=== PATIENT | female | born 1980 | race Hispanic/Latino ===

== ENCOUNTER 2017-10-01 20:54 | Emergency (ER) | payer OTHER ==
[2017-10-01 22:14] LABS: Urine Blood NEGATIVE (NEG); Urine Glucose NEGATIVE (NEG); Urine Protein NEGATIVE (NEG); Urine Specific Gravity 1.015 (1.005-1.030)
[2017-10-01] MEDS ORDERED: NA CHLORIDE 0.9% 1,000 ML ONE (22:52)
[2017-10-01] MEDS ORDERED: ONDANSETRON 4 MG/2 ML VIAL ONE (22:52)
[2017-10-01] MEDS ORDERED: KETOROLAC 30 MG/ML INJ ONE (22:52)
[2017-10-01 23:51] LABS: Absolute Monocytes 0.8 K/uL (0.1-1.3); Absolute Neutrophil 6.9 K/uL (1.8-8.0); Eosinophils % 0.5 % (0-4.4); Hematocrit 40.7 % (36.0-45.0); Lymphocytes % 33.6 % (15.3-44.8); MCH 30.2 pg (27.0-35.0); MCV 90.8 fL (80-100); MPV 9.3 fL (7.6-11.3); Monocytes % 7.1 % (3.3-12.3); RBC Red Blood Cell Count 4.49 M/uL (3.86-4.86)
[2017-10-01 23:54] LABS: Bicarbonate 29 mEq/L (21-31); Glucose Level 88 mg/dL (65-120); Potassium 4.1 mEq/L (3.6-5.0); Sodium Level 139 mEq/L (135-145)
[2017-10-01 23:57] LABS: ALT/SGPT 15 IU/L (10-60); AST/SGOT 17 IU/L (10-42); Albumin 4.2 g/dL (3.2-5.5); Alkaline Phosphatase 69 IU/L (42-121); BUN Blood Urea Nitrogen 11 mg/dL (6-20); Bilirubin Total 0.4 mg/dL (0.3-1.2); Protein, Total 7.4 g/dL (6.0-8.3)
--- NOTE | 2017-10-02 01:05 | EDPHYS ---
Physician Documentation [facility] Name: Gilma Urbano Age: 36 yrs Sex: Female : 1980 Arrival Date: 10/01/2017 Time: 20:57 Bed 23 Private MD: Benny Zheng ED Physician Donovan Lowery HPI: 10/02 00:53 This 36 yrs old Female presents to ER via Ambulatory with complaints of Kidney ps1 Pain. 00:53 The patient complains of pain in the left low back. left groin. Onset: The ps1 symptoms/episode began/occurred today. hx of stones. Used to see Dr. Russell. hx of lithotripsies in past. Patient states symptoms c/w previous stones. No fever. Has had nausea 2/2 pain. Pain rated as moderate and fluctuating. Described as dull. . 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 - Social history:: Smoking status: Patient/guardian denies using tobacco. - Ebola Screening: : Patient negative for fever greater than or equal to 101.5 degrees Fahrenheit, and additional compatible Ebola Virus Disease symptoms Patient denies exposure to infectious person Patient denies travel to an Ebola-affected area in the 21 days before illness onset No symptoms or risks identified at this time. ROS: 10/02 00:53 Constitutional: Negative for fever, chills, and weight loss, Eyes: Negative for injury, ps1 pain, redness, and discharge, Cardiovascular: Negative for chest pain, palpitations, and edema, Respiratory: Negative for shortness of breath, cough, wheezing, and pleuritic chest pain, Abdomen/GI: Negative for abdominal pain, nausea, vomiting, diarrhea, and constipation, Back: Negative for injury and pain. : Positive for flank pain, urinary frequency. 00:53 MS/Extremity: Negative for injury and deformity, Skin: Negative for injury, rash, and ps1 discoloration, Neuro: Negative for headache, weakness, numbness, tingling, and seizure, Psych: Negative for depression, anxiety, suicide ideation, homicidal ideation, and hallucinations. Exam: 00:53 Constitutional: This is a well developed, well nourished patient who is awake, alert, ps1 and in no acute distress. Head/Face: Normocephalic, atraumatic. Eyes: Pupils equal round and reactive to light, extra-ocular motions intact. Lids and lashes normal. Conjunctiva and sclera are non-icteric and not injected. Chest/axilla: Normal chest wall appearance and motion. Nontender with no deformity. No lesions are appreciated. Cardiovascular: Regular rate and rhythm. No gallops, murmurs, or rubs. Normal PMI, no JVD. No pulse deficits. Respiratory: Lungs have equal breath sounds bilaterally, clear to auscultation and percussion. No rales, rhonchi or wheezes noted. No increased work of breathing, no retractions or nasal flaring. Abdomen/GI: Soft, non-tender, with normal bowel sounds. No distension or tympany. No guarding or rebound. No evidence of tenderness throughout. Skin: Warm, dry with normal turgor. Normal color with no rashes, no lesions, and no evidence of cellulitis. MS/ Extremity: Pulses equal, no cyanosis. Neurovascular intact. Full, normal range of motion. Neuro: Awake and alert, GCS 15, oriented to person, place, time, and situation. Cranial nerves II-XII grossly intact. Sensory grossly intact. Psych: Awake, alert, with orientation to person, place and time. Behavior, mood, and affect are within normal limits. Vital Signs: 10/01 21:03 BP 132 / 97; Pulse 77; Resp 16; Temp 97.8; Pulse Ox 98% on R/A; Weight 83.91 kg; Height aj 5 ft. 3 in. (160.02 cm); 22:02 BP 148 / 93; Pulse 88; Resp 17; Pulse Ox 98% on R/A; kr2 23:34 BP 144 / 90; Pulse 88; Resp 16; Pulse Ox 99% on R/A; kr2 10/02 01:12 BP 132 / 80; Pulse 79; Resp 17; Pulse Ox 98% on R/A; rk2 10/01 21:03 Body Mass Index 32.77 (83.91 kg, 160.02 cm) aj MDM: 10/01 23:04 Patient medically screened. ps1 10/02 00:53 Data reviewed: vital signs, nurses notes, lab test result(s), radiologic studies, CT ps1 scan. ED course: mild leukocytosis. Renal fx fine. UA neg. CT negative for uteral stone. Pt to follow up with Dr. Russell. . 10/01 22:01 Order name: Urine Dipstick--Ancillary (enter results); Complete Time: 22:24 2 10/01 22:01 Order name: Urine --Ancillary (enter results); Complete Time: 22:24 2 10/01 22:49 Order name: CBC with Diff; Complete Time: 23:53 ps1 10/01 22:49 Order name: CMP; Complete Time: 00:03 ps1 10/01 22:49 Order name: CT Stone Protocol ps1 Administered Medications: 10/01 22:57 Drug: TORadol 30 mg Route: IVP; Site: right antecubital; kr2 10/02 01:20 Follow up: Response: No adverse reaction rk2 10/01 22:57 Drug: Zofran 4 mg Route: IVP; Site: right antecubital; kr2 10/02 01:20 Follow up: Response: No adverse reaction 2 10/01 22:57 Drug: NS 0.9% 1000 ml Route: IV; Rate: 1 bolus; Site: right antecubital; kr2 10/02 00:05 Follow up: Response: No adverse reaction; IV Status: Completed infusion rk2 01:18 Drug: HYDROcodone-acetaminophen 5 mg-325 mg 1 tabs Route: PO; rk2 01:24 Follow up: given \T\ DC rk2 Disposition: 10/02/17 01:04 Discharged to Home. Impression: Unspecified renal colic. - Condition is Stable. - Discharge Instructions: Ureteral Colic. - Prescriptions for ketorolac 10 mg Oral tablet - take 1 tablet by ORAL route every 6 hours not to exceed 40 mg in 24hrs; 15 tablet. - Medication Reconciliation Form, Thank You Letter, Antibiotic Education, Prescription Opioid Use, Work release form form. - Follow up: Gerhard Russell MD; When: As needed; Reason: Further diagnostic work-up, Recheck today's complaints, Continuance of care, Re-evaluation by your physician. Follow up: Emergency Department; When: As needed; Reason: Worsening of condition. - Problem is an ongoing problem. - Symptoms have improved. Signatures: Dispatcher [employer] EDMS Angie Crook, RN RN aj Nazanin Lerner RN RN kr2 Donovan Lowery MD MD ps1 Gay Christensen RN RN rk2 Corrections: (The following items were deleted from the chart) 01:19 01:04 10/02/2017 01:04 Discharged to Home. Impression: Unspecified renal colic. rk2 Condition is Stable. Forms are Medication Reconciliation Form, Thank You Letter, Antibiotic Education, Prescription Opioid Use. Follow up: Gerhard Russell; When: As needed; Reason: Further diagnostic work-up, Recheck today's complaints, Continuance of care, Re-evaluation by your physician. Follow up: Emergency Department; When: As needed; Reason: Worsening of condition. Problem is an ongoing problem. Symptoms have improved. ps1 01:25 01:19 10/02/2017 01:04 Discharged to Home. Impression: Unspecified renal colic. rk2 Condition is Stable. Discharge Instructions: Ureteral Colic. Prescriptions for ketorolac 10 mg Oral tablet - take 1 tablet by ORAL route every 6 hours not to exceed 40 mg in 24hrs; 15 tablet. and Forms are Medication Reconciliation Form, Thank You Letter, Antibiotic Education, Prescription Opioid Use, Work release form. Follow up: Gerhard Russell; When: As needed; Reason: Further diagnostic work-up, Recheck today's complaints, Continuance of care, Re-evaluation by your physician. Follow up: Emergency Department; When: As needed; Reason: Worsening of condition. Problem is an ongoing problem. Symptoms have improved. rk2
--- NOTE | 2017-10-02 01:05 | ER ---
Nurse's Notes [facility] Name: Gilma Urbano Age: 36 yrs Sex: Female : 1980 Arrival Date: 10/01/2017 Time: 20:57 Bed 23 Private MD: Benny Zheng Diagnosis: Unspecified renal colic Presentation: 10/01 21:02 Presenting complaint: Patient states: Left lower back pain that started this AM. aj Reports urinary hesitancy. Transition of care: patient was not received from another setting of care. Onset of symptoms was October 01, 2017. Care prior to arrival: None. 21:02 Method Of Arrival: Ambulatory aj 21:02 Acuity: CARRIE 3 aj 22:01 Risk Assessment: Do you want to hurt yourself or someone else? Patient reports no kr2 desire to harm self or others. Initial Sepsis Screen: Does the patient meet any 2 criteria? No. Patient's initial sepsis screen is negative. Does the patient have a suspected source of infection? No. Patient's initial sepsis screen is negative. Triage Assessment: 21:03 General: Appears in no apparent distress. comfortable, Behavior is calm, cooperative, aj appropriate for age. Pain: Complains of pain in left low back Pain currently is 7 out of 10 on a pain scale. Neuro: Level of Consciousness is awake, alert, obeys commands, Oriented to person, place, time, situation, Appropriate for age. Respiratory: Airway is patent Respiratory effort is even, unlabored, Respiratory pattern is regular, symmetrical. Derm: Skin is intact, is healthy with good turgor, Skin is pink, warm \\T\\ dry. normal. 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 - Social history:: Smoking status: Patient/guardian denies using tobacco. - Ebola Screening: : Patient negative for fever greater than or equal to 101.5 degrees Fahrenheit, and additional compatible Ebola Virus Disease symptoms Patient denies exposure to infectious person Patient denies travel to an Ebola-affected area in the 21 days before illness onset No symptoms or risks identified at this time. Screenin:01 Abuse screen: Denies threats or abuse. Denies injuries from another. Nutritional kr2 screening: No deficits noted. Tuberculosis screening: No symptoms or risk factors identified. Fall Risk None identified. Assessment: 21:57 General: Appears in no apparent distress. uncomfortable, well groomed, well developed, kr2 well nourished, Behavior is calm, cooperative, appropriate for age. Pain: Complains of pain in left low back Pain does not radiate. Pain currently is 8 out of 10 on a pain scale. Quality of pain is described as sharp, Pain began this morning Is continuous, Alleviated by nothing. Neuro: Level of Consciousness is awake, alert, obeys commands, Oriented to person, place, time, situation, Appropriate for age. Cardiovascular: Capillary refill < 3 seconds in bilateral fingers Patient's skin is warm and dry. Respiratory: Airway is patent Respiratory effort is even, unlabored, Respiratory pattern is regular, symmetrical. GI: Abdomen is flat, non-distended, Reports nausea. : Urine is clear, Reports it takes her a while to urinate, she "really has to push" and she has a history of kidney stones. EENT: Oral mucosa is moist. Derm: Skin is intact, is healthy with good turgor, Skin is pink, warm \\T\\ dry. Musculoskeletal: Circulation, motion, and sensation intact. 23:13 Reassessment: Patient in CT at this time, received notification from lab that blood kr2 sent for ordered labs was hemolyzed. Will redraw upon patient return from CT. 23:33 Reassessment: Patient appears in no apparent distress at this time. Patient and/or kr2 family updated on plan of care and expected duration. Pain level reassessed. Patient is alert, oriented x 3, equal unlabored respirations, skin warm/dry/pink. Blood recollected and sent to lab. Patient states her pain is not as bad but she is still very uncomfortable. Provider notified. No new orders at this time. 10/02 00:02 Reassessment: Patient appears in no apparent distress at this time. Patient and/or kr2 family updated on plan of care and expected duration. Pain level reassessed. Patient is alert, oriented x 3, equal unlabored respirations, skin warm/dry/pink. 01:18 Reassessment: Verbal order received for [place] 5/[address] Lowery. rk2 Vital Signs: 10/01 21:03 BP 132 / 97; Pulse 77; Resp 16; Temp 97.8; Pulse Ox 98% on R/A; Weight 83.91 kg; Height aj 5 ft. 3 in. (160.02 cm); 22:02 BP 148 / 93; Pulse 88; Resp 17; Pulse Ox 98% on R/A; kr2 23:34 BP 144 / 90; Pulse 88; Resp 16; Pulse Ox 99% on R/A; kr2 10/02 01:12 BP 132 / 80; Pulse 79; Resp 17; Pulse Ox 98% on R/A; rk2 10/01 21:03 Body Mass Index 32.77 (83.91 kg, 160.02 cm) aj ED Course: 10/01 20:57 Patient arrived in ED. ds1 20:57 Benny Zheng MD is Private Physician. ds1 21:02 Triage completed. aj 21:03 Arm band placed on right wrist. Patient placed in waiting room, Patient notified of wait time. 21:47 Nazanin Lerner, RN is Primary Nurse. kr2 21:53 Inserted saline lock: 20 gauge in right antecubital area, using aseptic technique. jb5 Blood collected. 22:02 Patient has correct armband on for positive identification. Bed in low position. Call kr2 light in reach. Side rails up X 1. Adult w/ patient. Pulse ox on. NIBP on. Door closed. Warm blanket given. Head of bed elevated. 22:15 Donovan Lowery MD is Attending Physician. ps1 22:[address] via wheelchair. sj 23:[address] via wheelchair. kw1 23:15 CT completed. Patient tolerated procedure well. Patient moved back from CT. kw1 23:19 CT Stone Protocol In Process Unspecified. EDMS 10/02 01:02 Gerhard Russell MD is Referral Physician. ps1 01:19 No provider procedures requiring assistance completed. IV discontinued. rk2 01:22 Primary Nurse role handed off by Nazanin Lerner, RN bb Administered Medications: 10/01 22:57 Drug: TORadol 30 mg Route: IVP; Site: right antecubital; kr2 10/02 01:20 Follow up: Response: No adverse reaction rk2 10/01 22:57 Drug: Zofran 4 mg Route: IVP; Site: right antecubital; kr2 10/02 01:20 Follow up: Response: No adverse reaction rk2 10/01 22:57 Drug: NS 0.9% 1000 ml Route: IV; Rate: 1 bolus; Site: right antecubital; kr2 10/02 00:05 Follow up: Response: No adverse reaction; IV Status: Completed infusion rk2 01:18 Drug: HYDROcodone-acetaminophen 5 mg-325 mg 1 tabs Route: PO; rk2 01:24 Follow up: given \\T\\ DC rk2 Intake: Outcome: 01:04 Discharge ordered by . ps1 01:19 Discharged to home ambulatory. rk2 01:19 Condition: good 01:19 Discharge instructions given to patient, Prescriptions given X 1. 01:19 Patient left the ED. rk2 01:25 Patient left the ED. rk2 Signatures: Dispatcher [employer] EDMS Angie Crook RN RN aj Jones, Susan sj Sanford, Demi ds1 Lennie Finley RN RN bb Broussard, Jennifer jb5 Reaves, Karey, RN RN kr2 Donovan Lowery MD MD ps1 Maria A Jaime kw1 Gay Christensen RN RN rk2 Corrections: (The following items were deleted from the chart) 00:03 06 23:33 Reassessment: Patient appears in no apparent distress at this time. Patient kr2 and/or family updated on plan of care and expected duration. Pain level reassessed. Patient is alert, oriented x 3, equal unlabored respirations, skin warm/dry/pink. Blood recollected and sent to lab. Patient states her pain is not as bad but she is still very uncomfortable. Provider notified. kr2
[2017-10-02] MEDS ORDERED: HYDROCODONE/APAP 5/325 MG TAB ONE (01:14)
--- NOTE | 2017-10-02 07:20 | RAD REPORT ---
EXAM DESCRIPTION: CT - Stone Protocol - 10/02/2017 4:04 am CLINICAL HISTORY: Abdominal pain. Left flank pain with urinary hesitancy COMPARISON: 2010 TECHNIQUE: Computed axial tomography of the abdomen pelvis was obtained without oral or IV contrast. Lack of IV and oral contrast limits evaluation of solid organs, bowel, and vessels. Coronal reformat yonas images were obtained and reviewed. A preliminary report was generated by [employer] and reviewed prior to this dictation All CT scans are performed using dose optimization technique as appropriate and may include automated exposure control or mA/KV adjustment according to patient size. FINDINGS: Multiple, bilateral small renal calculi vary in size from 2-3 millimeters. Hydronephrosis is not seen. An ureteral calculus is not noted. A bladder calculus is not present. The liver, spleen, pancreas and adrenals appear grossly normal There is no evidence of diverticulitis. The appendix is not visualized. Gastric band is in place IMPRESSION: Small, multiple bilateral nonobstructing renal calculi
== END 2017-10-02 01:25 | disposition home or self-care (01) ==
LOC: ER 20:54
DX: N23 Unspecified renal colic (principal); F90.9 Attention-deficit hyperactivity disorder, unspecified type; F32.9 Major depressive disorder, single episode, unspecified
CPT/HCPCS: 36415; 74176; 76377; 80053; 81003; 81025; 85025; 96361; 96374; 96375; 99284; J2405; J7030

== ENCOUNTER 2017-12-05 12:19 | Emergency (ER) | payer OTHER ==
[2017-12-05 13:15] LABS: Urine Blood TRACE (NEG); Urine Glucose NEGATIVE (NEG); Urine Protein NEGATIVE (NEG)
--- NOTE | 2017-12-05 13:16 | RAD REPORT ---
EXAM DESCRIPTION: CT - Stone Protocol - 12/05/2017 1:08 pm CLINICAL HISTORY: Abdominal pain, flank pain COMPARISON: CT October 01 TECHNIQUE: Axial 5 mm thick images were obtained without oral or IV contrast. The [id number] span s the entirety of the system including uppermost abdomen and lung bases. All CT scans are performed using dose optimization technique as appropriate and may include automated exposure control or mA/KV adjustment according to patient size. FINDINGS: No hydronephrosis present and no obstructing calculus is present. Patient has numerous elizabeth ateral 2-5 mm sized caliceal calculi. No suspicious renal masses. Isodense masses and pyelonephritis are not excluded on a stone protocol CT scan. Bladder is partially contracted. No bladder calculus pr esent. Uterus and ovaries within normal limits. Imaged portions of the liver, spleen and pancreas show no suspicious findings on non-contrast imaging . No gallbladder or biliary tree abnormality identified. No significant adrenal finding. No suspicious bowel findings. Lap band changes are present similar to comparison. No acute component seen. The distal esophagus above the lap band remains prominent. No mass or bulky lymphadenopathy. Postsurgical changes to the anterior abdominal wall noted. No free air, free fluid or inflammatory stranding. No significant bony abnormality. IMPRESSION: Multiple bilateral nonobstructing caliceal calculi present. No hydronephrosis, obstructing calculus or acute finding identifiable. Isodense masses and pyelonephritis are not excluded on stone protocol technique. Remainder the findings, as detailed above are without acute finding or significant change from September.
[2017-12-05] MEDS ORDERED: CYCLOBENZAPRINE 10 MG TAB ONE (13:41)
[2017-12-05] MEDS ORDERED: HYDROCODONE/APAP 10/325 TAB ONE (13:42)
[2017-12-05] MEDS ORDERED: KETOROLAC 30 MG/ML INJ ONE (13:42)
--- NOTE | 2017-12-05 13:45 | EDPHYS ---
Physician Documentation [facility] Name: Gilma Urbano Age: 36 yrs Sex: Female : 1980 Arrival Date: 12/05/2017 Time: 12:21 Bed 20 Private MD: Benny Zheng ED Physician Juancarlos Pimentel HPI: 12/05 12:39 This 36 yrs old Female presents to ER via Ambulatory with complaints of Back pm1 Pain. 12:41 The patient presents with pain that is acute, with no known mechanism of injury. The pm1 symptoms are located in the left low back. Onset: The symptoms/episode began/occurred 2 week(s) ago. The pain radiates to the left leg. Associated signs and symptoms: Pertinent negatives: abdominal pain, chest pain, dysuria, fever, headache, numbness, tingling, vomiting, weakness. Modifying factors: The patient symptoms are alleviated by nothing, the patient symptoms are aggravated by bending, moving left leg. Severity of symptoms: in the emergency department the symptoms are actually worse. The patient has experienced similar episodes in the past, a few times, today's symptoms are similar, to previous kidney stones. 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 - Social history:: Smoking status: Patient/guardian denies using tobacco. - Ebola Screening: : Patient negative for fever greater than or equal to 101.5 degrees Fahrenheit, and additional compatible Ebola Virus Disease symptoms Patient denies exposure to infectious person Patient denies travel to an Ebola-affected area in the 21 days before illness onset No symptoms or risks identified at this time. ROS: 12:44 Constitutional: Negative for fever, chills, and weight loss, Eyes: Negative for injury, pm1 pain, redness, and discharge, ENT: Negative for injury, pain, and discharge, Neck: Negative for injury, pain, and swelling, Cardiovascular: Negative for chest pain, palpitations, and edema, Respiratory: Negative for shortness of breath, cough, wheezing, and pleuritic chest pain, Abdomen/GI: Negative for abdominal pain, nausea, vomiting, diarrhea, and constipation. 12:44 : Negative for injury, bleeding, discharge, and swelling, MS/Extremity: Negative for injury and deformity, Skin: Negative for injury, rash, and discoloration, Neuro: Negative for headache, weakness, numbness, tingling, and seizure. 12:44 Back: Positive for flank pain, on the left, pain radiation to left thigh, Negative for decreased range of motion. Exam: 12:44 Constitutional: This is a well developed, well nourished patient who is awake, alert, pm1 and in no acute distress. Head/Face: Normocephalic, atraumatic. Eyes: Pupils equal round and reactive to light, extra-ocular motions intact. Lids and lashes normal. Conjunctiva and sclera are non-icteric and not injected. Cornea within normal limits. Periorbital areas with no swelling, redness, or edema. ENT: Nares patent. No nasal discharge, no septal abnormalities noted. Tympanic membranes are normal and external auditory canals are clear. Oropharynx with no redness, swelling, or masses, exudates, or evidence of obstruction, uvula midline. Mucous membranes moist. Neck: Trachea midline, no thyromegaly or masses palpated, and no cervical lymphadenopathy. Supple, full range of motion without nuchal rigidity, or vertebral point tenderness. No Meningismus. Chest/axilla: Normal chest wall appearance and motion. Nontender with no deformity. No lesions are appreciated. Cardiovascular: Regular rate and rhythm with a normal S1 and S2. No gallops, murmurs, or rubs. No pulse deficits. Respiratory: Lungs have equal breath sounds bilaterally, clear to auscultation and percussion. No rales, rhonchi or wheezes noted. No increased work of breathing, no retractions or nasal flaring. Abdomen/GI: Soft, non-tender, with normal bowel sounds. No distension or tympany. No guarding or rebound. No evidence of tenderness throughout. Skin: Warm, dry with normal turgor. Normal color with no rashes, no lesions, and no evidence of cellulitis. MS/ Extremity: Pulses equal, no cyanosis. Neurovascular intact. Full, normal range of motion. 12:44 Back: pain, that is mild, of the left low back, normal spinal alignment noted. 12:44 Neuro: Orientation: is normal, Motor: is normal, moves all fours, Sensation: is normal, no obvious gross deficits, Gait: is steady, at a normal pace, without difficulty. Vital Signs: 12:28 BP 144 / 85; Pulse 93; Resp 18; Temp 99.0; Pulse Ox 99% on R/A; Weight 83.91 kg; Height aj 5 ft. 3 in. (160.02 cm); 13:54 BP 135 / 80; Pulse 89; Resp 18; Pulse Ox 100% on R/A; hj 12:28 Body Mass Index 32.77 (83.91 kg, 160.02 cm) aj MDM: 12:31 Patient medically screened. pm1 13:34 Data reviewed: vital signs. Data interpreted: Pulse oximetry: on room air is 99 %. pm1 Interpretation: normal. Counseling: I had a detailed discussion with the patient and/or guardian regarding: the historical points, exam findings, and any diagnostic results supporting the discharge/admit diagnosis, lab results, radiology results, the need for outpatient follow up, to return to the emergency department if symptoms worsen or persist or if there are any questions or concerns that arise at home. 13:34 Differential diagnosis: sprain, Ureterolithiasis Sciatica, UTI. pm1 0809 13:04 Order name: Urine Dipstick--Ancillary (enter results); Complete Time: 13:31 bd 12/05 13:04 Order name: Urine --Ancillary (enter results); Complete Time: 13:31 bd 12/05 12:35 Order name: CT Stone Protocol; Complete Time: 13:31 pm1 12/05 12:35 Order name: Urine Dipstick-Ancillary (obtain specimen); Complete Time: 12:50 pm1 12/05 12:35 Order name: Urine Test (obtain specimen); Complete Time: 12:50 pm1 Administered Medications: 13:35 Drug: [place] 10 mg-325 mg 1 tabs Route: PO; cc3 13:46 Follow up: Response: No adverse reaction cc3 13:35 Drug: Flexeril 10 mg Route: PO; cc3 13:46 Follow up: Response: No adverse reaction cc3 13:35 Drug: TORadol 60 mg Route: IM; Site: left deltoid; cc3 13:45 Follow up: Response: No adverse reaction; Pain is decreased cc3 Disposition: 14:37 Co-signature as Attending Physician, Juancarlos Pimentel MD. rn Disposition: 12/05/17 13:44 Discharged to Home. Impression: Low back pain. - Condition is Stable. - Discharge Instructions: Back Pain, Adult, Sciatica. - Prescriptions for Tylenol- Codeine #3 300-30 mg Oral Tablet - take 2 tablets by ORAL route every 6 hours As needed; 20 tablet. Cyclobenzaprine 10 mg Oral Tablet - take 1 tablet by ORAL route every 8 hours As needed; 30 tablet. Diclofenac Sodium 75 mg Oral Tablet Sustained Release - take 1 tablet by ORAL route 2 times per day; 30 tablet. - Medication Reconciliation Form, Thank You Letter, Antibiotic Education, Prescription Opioid Use, Work release form form. - Follow up: Emergency Department; When: As needed; Reason: Worsening of condition. Follow up: Private Physician; When: 2 - 3 days; Reason: Recheck today's complaints, Continuance of care, Re-evaluation by your physician. - Problem is new. - Symptoms have improved. Signatures: Dispatcher [employer] EDAngie Lama RN RN aj Nieto, Roman, MD MD rn Joaquin, Henry, RN RN hj Marinas, Patrick, NP SAP BUSINESS ANALYST pm1 Mignon Ball cc3 Corrections: (The following items were deleted from the chart) 13:55 13:44 12/05/2017 13:44 Discharged to Home. Impression: Low back pain. Condition is hj Stable. Forms are Medication Reconciliation Form, Thank You Letter, Antibiotic Education, Prescription Opioid Use. Follow up: Emergency Department; When: As needed; Reason: Worsening of condition. Follow up: Private Physician; When: 2 - 3 days; Reason: Recheck today's complaints, Continuance of care, Re-evaluation by your physician. Problem is new. Symptoms have improved. pm1
--- NOTE | 2017-12-05 13:45 | ER ---
Nurse's Notes [facility] Name: Gilma Urbano Age: 36 yrs Sex: Female : 1980 Arrival Date: 12/05/2017 Time: 12:21 Bed 20 Private MD: Benny Zheng Diagnosis: Low back pain Presentation: 12/05 12:26 Presenting complaint: Patient states: Reports left low back pain that shoots down left aj leg for 2 weeks. Worse with standing and movement. Transition of care: patient was not received from another setting of care. Onset of symptoms was November 20, 2017. Risk Assessment: Do you want to hurt yourself or someone else? Patient reports no desire to harm self or others. Initial Sepsis Screen: Does the patient meet any 2 criteria? No. Patient's initial sepsis screen is negative. Does the patient have a suspected source of infection? No. Patient's initial sepsis screen is negative. Care prior to arrival: None. 12:26 Method Of Arrival: Ambulatory aj 12:26 Acuity: CARRIE 4 aj Triage Assessment: 12:28 General: Appears in no apparent distress. uncomfortable, Behavior is calm, cooperative, aj appropriate for age. Pain: Complains of pain in coccyx, left lower back, left gluteus randa and left gluteal fold. Neuro: Level of Consciousness is awake, alert, obeys commands, Oriented to person, place, time, situation, Appropriate for age. Respiratory: Airway is patent Respiratory effort is even, unlabored, Respiratory pattern is regular, symmetrical. Derm: Skin is intact, is healthy with good turgor, Skin is pink, warm \T\ dry. normal. Musculoskeletal: Range of motion: intact in all extremities. 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 - Social history:: Smoking status: Patient/guardian denies using tobacco. - Ebola Screening: : Patient negative for fever greater than or equal to 101.5 degrees Fahrenheit, and additional compatible Ebola Virus Disease symptoms Patient denies exposure to infectious person Patient denies travel to an Ebola-affected area in the 21 days before illness onset No symptoms or risks identified at this time. Screenin:28 Abuse screen: Denies threats or abuse. Denies injuries from another. Nutritional cc3 screening: No deficits noted. Tuberculosis screening: No symptoms or risk factors identified. Fall Risk None identified. Assessment: 12:28 General: Appears in no apparent distress. uncomfortable, Behavior is calm, cooperative, cc3 appropriate for age. Pain: Complains of pain in left low back and right low back. Neuro: Level of Consciousness is awake, alert, obeys commands, Oriented to person, place, time, situation, Appropriate for age. Cardiovascular: Heart tones S1 S2 present Capillary refill < 3 seconds Patient's skin is warm and dry. Respiratory: Airway is patent Respiratory effort is even, unlabored, Respiratory pattern is regular, symmetrical. GI: No signs and/or symptoms were reported involving the gastrointestinal system. :. : Denies burning with urination. EENT: No signs and/or symptoms were reported regarding the EENT system. Derm: No signs and/or symptoms reported regarding the dermatologic system. Musculoskeletal: Reports pain in left low back and right low back. Vital Signs: 12:28 BP 144 / 85; Pulse 93; Resp 18; Temp 99.0; Pulse Ox 99% on R/A; Weight 83.91 kg; Height aj 5 ft. 3 in. (160.02 cm); 13:54 BP 135 / 80; Pulse 89; Resp 18; Pulse Ox 100% on R/A; hj 12:28 Body Mass Index 32.77 (83.91 kg, 160.02 cm) aj ED Course: 12:21 Patient arrived in ED. mr 12:21 Benny Zheng MD is Private Physician. mr 12:27 Triage completed. aj 12:28 Arm band placed on right wrist. Patient placed in an exam room. aj 12:28 Patient has correct armband on for positive identification. Placed in gown. Bed in low cc3 position. Call light in reach. Side rails up X 1. Adult w/ patient. 12:30 Eliseo Monae NP is PHCP. pm1 12:30 Juancarlos Pimentel MD is Attending Physician. pm1 12:43 Radiology exam delayed due to test not completed at this time. vr 12:50 Urine collected: clean catch specimen, clear. 5 13:07 CT Stone Protocol In Process Unspecified. EDMS 13:54 No provider procedures requiring assistance completed. Patient did not have IV access hj during this emergency room visit. Administered Medications: 13:35 Drug: [place] 10 mg-325 mg 1 tabs Route: PO; cc3 13:46 Follow up: Response: No adverse reaction cc3 13:35 Drug: Flexeril 10 mg Route: PO; cc3 13:46 Follow up: Response: No adverse reaction cc3 13:35 Drug: TORadol 60 mg Route: IM; Site: left deltoid; cc3 13:45 Follow up: Response: No adverse reaction; Pain is decreased cc3 Outcome: 13:44 Discharge ordered by MD. pm1 13:54 Discharged to home ambulatory, with family. hj 13:54 Condition: stable 13:54 Discharge instructions given to patient, family, Instructed on discharge instructions, follow up and referral plans. medication usage, Demonstrated understanding of instructions, follow-up care, medications, Prescriptions given X 3. 13:55 Patient left the ED. Signatures: Dispatcher [employer] EDMS Angie Crook RN RN aj Rivera, Maria mr Davis, Victoria vr Saulo Olivarez RN RN hj Marinas, Patrick, SOAKING PITS SUPERVISOR SOAKING PITS SUPERVISOR pm1 Bere Painter [facility] Mignon Ball cc3
== END 2017-12-05 13:55 | disposition home or self-care (01) ==
LOC: ER 12:19
DX: M54.5 Low back pain (principal)
CPT/HCPCS: 74176; 76377; 81003; 81025; 96372; 99284

== ENCOUNTER 2017-12-17 15:53 | Emergency (ER) | payer OTHER ==
[2017-12-17] MEDS ORDERED: MEPERIDINE HCL 50 MG/ML AMP ONE (16:20)
[2017-12-17] MEDS ORDERED: METOCLOPRAMIDE 10 MG/2mL INJ ONE (16:20)
[2017-12-17] MEDS ORDERED: NA CHLORIDE 0.9% 1,000 ML ONE (16:21)
--- NOTE | 2017-12-17 17:02 | EDPHYS ---
Physician Documentation [facility] Name: Gilam Urbano Age: 36 yrs Sex: Female : 1980 Arrival Date: 12/17/2017 Time: 15:55 Bed 14 Private MD: Benny Zheng ED Physician Juancarlos Pimentel HPI: 12/17 16:14 This 36 yrs old Female presents to ER via Ambulatory with complaints of rn Headache. 16:14 The patient complains of pain to the right side. The patient describes the headache as rn aching. Onset: The symptoms/episode began/occurred 1 week(s) ago. Associated signs and symptoms: Pertinent positives: malaise, Photophobia vomiting, Pertinent negatives: altered mental status, fever, neck stiffness, vision changes, vision loss, weakness, vertigo. Severity of symptoms: At its worst the pain was moderate, in the emergency department the pain is unchanged. The symptoms are alleviated by nothing. the symptoms are aggravated by lights, stress. The patient has experienced similar episodes in the past. Reports long hx of migraines, lost her insurance so doesn't have abortive medication anymore, went to pcp today, given prescription for imitrex, pharmacy didn't have it ready so came here for medication. Similar to previous headaches, no trauma, no focal neurological complaint. Has had complete migraine w/u in past that was normal. 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 - Social history:: Smoking status: Patient/guardian denies using tobacco. - Ebola Screening: : No symptoms or risks identified at this time. - Family history:: not pertinent. - Hospitalizations: : No recent hospitalization is reported. ROS: 16:14 Constitutional: Negative for fever, chills, and weight loss, Eyes: Negative for injury, rn pain, redness, and discharge, Neck: Negative for injury, pain, and swelling, Cardiovascular: Negative for chest pain, palpitations, and edema, Respiratory: Negative for shortness of breath, cough, wheezing, and pleuritic chest pain, Abdomen/GI: Negative for abdominal pain, diarrhea, and constipation, MS/Extremity: Negative for injury and deformity, Skin: Negative for injury, rash, and discoloration, Neuro: Negative for weakness, numbness, tingling, and seizure. Exam: 16:14 Constitutional: This is a well developed, well nourished patient who is awake, alert, rn and in no acute distress. Head/Face: Normocephalic, atraumatic. Eyes: Pupils equal round and reactive to light, extra-ocular motions intact. Lids and lashes normal. Conjunctiva and sclera are non-icteric and not injected. Cornea within normal limits. Periorbital areas with no swelling, redness, or edema. ENT: MMM Neck: Trachea midline, no thyromegaly or masses palpated, and no cervical lymphadenopathy. Supple, full range of motion without nuchal rigidity, or vertebral point tenderness. No Meningismus. Skin: Warm, dry with normal turgor. Normal color with no rashes, no lesions, and no evidence of cellulitis. MS/ Extremity: Pulses equal, no cyanosis. Neurovascular intact. Full, normal range of motion. Equal circumference. Neuro: Awake and alert, GCS 15, oriented to person, place, time, and situation. Cranial nerves II-XII grossly intact. Motor strength 5/5 in all extremities. Sensory grossly intact. Cerebellar exam normal. Normal gait. Vital Signs: 16:12 BP 131 / 77; Pulse 79; Resp 18; Temp 97.6; Pulse Ox 100% on R/A; Weight 81.65 kg; ph Height 5 ft. 3 in. (160.02 cm); Pain 9/10; 16:12 Body Mass Index 31.89 (81.65 kg, 160.02 cm) ph [place] Coma Score: 17:00 Eye Response: spontaneous(4). Verbal Response: oriented(5). Motor Response: obeys rn commands(6). Total: 15. MDM: 16:07 Patient medically screened. rn 17:00 Differential diagnosis: migraine, tension headache. Data reviewed: vital signs, nurses rn notes, and as a result, I will discharge patient. Counseling: I had a detailed discussion with the patient and/or guardian regarding: the historical points, exam findings, and any diagnostic results supporting the discharge/admit diagnosis, the need for outpatient follow up, to return to the emergency department if symptoms worsen or persist or if there are any questions or concerns that arise at home. Response to treatment: the patient's symptoms have markedly improved after treatment, and as a result, I will discharge patient. Special discussion: I discussed with the patient/guardian in detail that at this point there is no indication for admission to the hospital. It is understood, however, that if the symptoms persist or worsen the patient needs to return immediately for re-evaluation. Based on the history and exam findings, there is no indication for further emergent testing or inpatient evaluation. I discussed with the patient/guardian the need to see the neurologist for further evaluation of the symptoms. I discussed with the patient/guardian the need to see the primary care provider for further evaluation of the symptoms. 12/17 16:13 Order name: IV Start; Complete Time: 16:26 rn Administered Medications: 16:13 Drug: NS 0.9% 1000 ml Route: IV; Rate: 1000 ml; Site: right antecubital; hj 17:11 Follow up: IV Status: Order to discontinue infusion; IV Intake: 750ml cc3 16:13 Drug: Reglan 10 mg Route: IVP; Site: right antecubital; hj 17:10 Follow up: Response: No adverse reaction; Nausea is decreased cc3 16:13 Drug: Demerol 25 mg Route: IVP; Site: right antecubital; hj 17:10 Follow up: Response: No adverse reaction; Pain is decreased cc3 Disposition: 12/17/17 17:01 Discharged to Home. Impression: Migraine, Tension-type headache. - Condition is Stable. - Discharge Instructions: Migraine Headache. - Medication Reconciliation Form, Thank You Letter, Antibiotic Education, Prescription Opioid Use form. - Follow up: Benny Zheng MD; When: As needed; Reason: Recheck today's complaints, Re-evaluation by your physician. - Problem is new. - Symptoms have improved. Signatures: Juancarlos Pimentel MD MD rn Hall, Patricia, RN RN Saulo Olivarez RN RN Mignon Ball cc3 Corrections: (The following items were deleted from the chart) 17:11 17:01 12/17/2017 17:01 Discharged to Home. Impression: Migraine; Tension-type headache. cc3 Condition is Stable. Forms are Medication Reconciliation Form, Thank You Letter, Antibiotic Education, Prescription Opioid Use. Follow up: Benny Zheng; When: As needed; Reason: Recheck today's complaints, Re-evaluation by your physician. Problem is new. Symptoms have improved. rn
--- NOTE | 2017-12-17 17:02 | ER ---
Nurse's Notes [facility] Name: Gilma Urbano Age: 36 yrs Sex: Female : 1980 Arrival Date: 12/17/2017 Time: 15:55 Bed 14 Private MD: Benny Zheng Diagnosis: Migraine;Tension-type headache Presentation: 12/17 16:10 Presenting complaint: Patient states: " I've had a migraine since last Sat. I've taken ph Excedrin and it didn't help. I went to my doctor and got a prescription for Imitrex but the pharmacy hasn't filled it because they couldn't read his handwriting." Pt reports R sided headache, N/V,dizziness, and sensitivity to light and sound. Transition of care: patient was not received from another setting of care. Onset of symptoms was December 17, 2017. Risk Assessment: Do you want to hurt yourself or someone else? Patient reports no desire to harm self or others. Initial Sepsis Screen: Does the patient meet any 2 criteria? No. Patient's initial sepsis screen is negative. Does the patient have a suspected source of infection? No. Patient's initial sepsis screen is negative. Care prior to arrival: None. 16:10 Method Of Arrival: Ambulatory ph 16:10 Acuity: CARRIE 3 ph Triage Assessment: 16:19 Headache History: The patient has had previous headaches. General: Appears in no hj apparent distress. uncomfortable, Behavior is calm, cooperative, appropriate for age. Pain: Complains of pain in head Pain currently is 9 out of 10 on a pain scale. Pain began 2-3 days ago. Also complains of nausea, inability to work, inability to perform activities of daily living. Neuro: Level of Consciousness is awake, alert, obeys commands, Oriented to person, place, time, situation, Appropriate for age. 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 - Social history:: Smoking status: Patient/guardian denies using tobacco. - Ebola Screening: : No symptoms or risks identified at this time. - Family history:: not pertinent. - Hospitalizations: : No recent hospitalization is reported. Screenin:19 Abuse screen: Denies threats or abuse. Denies injuries from another. Nutritional hj screening: No deficits noted. Tuberculosis screening: No symptoms or risk factors identified. Fall Risk None identified. Assessment: 16:20 General: Appears in no apparent distress. uncomfortable, Behavior is calm, cooperative, hj appropriate for age. Pain: Complains of pain in head. Neuro: Level of Consciousness is awake, alert, obeys commands, Oriented to person, place, time, situation, Appropriate for age. Cardiovascular: Capillary refill < 3 seconds Patient's skin is warm and dry. Respiratory: Airway is patent Respiratory effort is even, unlabored, Respiratory pattern is regular, symmetrical. GI: No signs and/or symptoms were reported involving the gastrointestinal system. : No signs and/or symptoms were reported regarding the genitourinary system. EENT: No signs and/or symptoms were reported regarding the EENT system. Derm: No signs and/or symptoms reported regarding the dermatologic system. Musculoskeletal: No signs and/or symptoms reported regarding the musculoskeletal system. Vital Signs: 16:12 BP 131 / 77; Pulse 79; Resp 18; Temp 97.6; Pulse Ox 100% on R/A; Weight 81.65 kg; ph Height 5 ft. 3 in. (160.02 cm); Pain 9/10; 16:12 Body Mass Index 31.89 (81.65 kg, 160.02 cm) ph [place] Coma Score: 17:00 Eye Response: spontaneous(4). Verbal Response: oriented(5). Motor Response: obeys rn commands(6). Total: 15. ED Course: 15:55 Patient arrived in ED. mr 15:55 Benny Zheng MD is Private Physician. mr 16:04 Juancarlos Pimentel MD is Attending Physician. rn 16:06 Mignon Ball is Primary Nurse. cc3 16:12 Triage completed. ph 16:14 Arm band placed on. ph 16:20 Patient has correct armband on for positive identification. Bed in low position. Call hj light in reach. Side rails up X 1. 16:20 Inserted saline lock: 20 gauge in right antecubital area, using aseptic technique. cc3 17:01 Benny Zheng MD is Referral Physician. rn 17:08 No provider procedures requiring assistance completed. IV discontinued, intact, cc3 bleeding controlled, No redness/swelling at site. Pressure dressing applied. Administered Medications: 16:13 Drug: NS 0.9% 1000 ml Route: IV; Rate: 1000 ml; Site: right antecubital; hj 17:11 Follow up: IV Status: Order to discontinue infusion; IV Intake: 750ml cc3 16:13 Drug: Reglan 10 mg Route: IVP; Site: right antecubital; hj 17:10 Follow up: Response: No adverse reaction; Nausea is decreased cc3 16:13 Drug: Demerol 25 mg Route: IVP; Site: right antecubital; hj 17:10 Follow up: Response: No adverse reaction; Pain is decreased cc3 Intake: 17:11 IV: 750ml; Total: 750ml. cc3 Outcome: 17:01 Discharge ordered by MD. rn 17:10 Discharged to home ambulatory, with family. cc3 17:10 Condition: stable 17:10 Discharge instructions given to patient, Instructed on discharge instructions, follow up and referral plans. Demonstrated understanding of instructions, follow-up care. 17:11 Patient left the ED. cc3 Signatures: Bere Kirk Roman, MD MD rn Hall, Patricia, RN RN Saulo Olivarez RN RN Mignon Ball cc3
== END 2017-12-17 17:11 | disposition home or self-care (01) ==
LOC: ER 15:53
DX: G43.909 Migraine, unspecified, not intractable, without status migrainosus (principal); F90.9 Attention-deficit hyperactivity disorder, unspecified type; F32.9 Major depressive disorder, single episode, unspecified
CPT/HCPCS: 96361; 96374; 96375; 99283; J2175; J2765; J7030

== ENCOUNTER 2018-06-10 11:12 | Emergency (ER) | payer OTHER ==
[2018-06-10] MEDS ORDERED: MECLIZINE HCL 12.5 MG TAB ONE (12:08)
--- NOTE | 2018-06-10 12:19 | RAD REPORT ---
EXAM DESCRIPTION: CT - Head Brain Wo Cont - 06/10/2018 12:07 pm CLINICAL HISTORY: Head trauma, dizziness COMPARISON: None. TECHNIQUE: Axial 5 mm thick images of the head were obtained without IV contrast. All CT scans are performed using dose optimization technique as appropriate and may include automated exposure control or mA/KV adjustment according to patient size. FINDINGS: No intracranial hemorrhage, mass, edema or shift of mid-line structures. No acute infarcti on changes seen. No abnormal extra-axial fluid collections. Ventricles are normal. Mastoid air cells and visualized portions of the paranasal sinuses are clear. No acute bony findings. IMPRESSION: Negative non-contrast CT head examination.
--- NOTE | 2018-06-10 13:16 | ER ---
Nurse's Notes [facility] Name: Gilma Urbano Age: 37 yrs Sex: Female : 1980 Arrival Date: 06/10/2018 Time: 11:17 Bed 26 Private MD: Benny Zheng Diagnosis: Vertigo;Concussion Presentation: 06/10 11:32 Presenting complaint: Dizziness after hitting head on bathroom stall 10 days ago. hb Negative LOC. Hx of vertigo. Transition of care: patient was not received from another setting of care. Onset of symptoms was May 31, 2018. Risk Assessment: Do you want to hurt yourself or someone else? Patient reports no desire to harm self or others. Initial Sepsis Screen: Does the patient meet any 2 criteria? No. Patient's initial sepsis screen is negative. Does the patient have a suspected source of infection? No. Patient's initial sepsis screen is negative. Care prior to arrival: None. 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 - Social history:: Smoking status: Patient/guardian denies using tobacco. - Ebola Screening: : No symptoms or risks identified at this time. - Family history:: not pertinent. - Hospitalizations: : No recent hospitalization is reported. Screenin:58 Abuse screen: Denies threats or abuse. Denies injuries from another. Nutritional aj screening: No deficits noted. Tuberculosis screening: No symptoms or risk factors identified. Fall Risk None identified. Assessment: 11:58 General: Appears in no apparent distress. comfortable, Behavior is calm, cooperative, aj appropriate for age. Pain: Denies pain. Neuro: Level of Consciousness is awake, alert, obeys commands, Oriented to person, place, time, situation, Appropriate for age Reports dizziness. Respiratory: Airway is patent Respiratory effort is even, unlabored, Respiratory pattern is regular, symmetrical. Derm: Skin is intact, is healthy with good turgor, Skin is pink, warm \T\ dry. normal. 13:24 Reassessment: Patient appears in no apparent distress at this time. No changes from aj previously documented assessment. Patient and/or family updated on plan of care and expected duration. Pain level reassessed. Patient is alert, oriented x 3, equal unlabored respirations, skin warm/dry/pink. Vital Signs: 11:34 BP 105 / 76; Pulse 83; Resp 16; Temp 98.6; Pulse Ox 98% on R/A; Pain 0/10; hb 13:24 BP 111 / 75; Pulse 81; Resp 16; Pulse Ox 99% on R/A; aj ED Course: 11:17 Patient arrived in ED. mr 11:17 Benny Zheng MD is Private Physician. mr 11:33 Triage completed. hb 11:34 Arm band placed on. hb 11:40 Juancarlos Pimentel MD is Attending Physician. rn 11:40 Angie Crook RN is Primary Nurse. aj 11:58 Patient has correct armband on for positive identification. aj 12:04 CT completed. Patient tolerated procedure well. Patient moved to CT via wheelchair. vr Patient moved back from CT. 12:07 CT completed. Patient tolerated procedure well. Patient moved to CT via wheelchair. vr Patient moved back from CT. 12:09 CT Head Brain wo Cont In Process Unspecified. EDMS 12:10 Urine collected: clean catch specimen, clear, leonel colored, Amount Voided: 80mL. jp3 12:20 Warm blanket given. jp3 12:26 Urine Dipstick--Ancillary (enter results) Sent. aj 12:26 Urine --Ancillary (enter results) Sent. aj 12:43 Urine --Ancillary (enter results) Sent. jp3 12:43 Urine Dipstick--Ancillary (enter results) Sent. jp3 13:24 No provider procedures requiring assistance completed. Patient did not have IV access aj during this emergency room visit. Administered Medications: 11:58 Drug: Meclizine 50 mg Route: PO; aj 13:26 Follow up: Response: No adverse reaction aj Outcome: 13:15 Discharge ordered by . rn 13:24 Discharged to home ambulatory. aj 13:24 Condition: good 13:24 Discharge instructions given to patient, Instructed on discharge instructions, follow up and referral plans. medication usage, Demonstrated understanding of instructions, follow-up care, medications, Prescriptions given X 1. 13:26 Patient left the ED. aj Signatures: Dispatcher [employer] Angie Hung, RN Paula Parham Roman, MD MD rn Davis, Victoria vr Baxter, Heather, RN RN hb Pisarski, Jacob jp3
--- NOTE | 2018-06-10 13:16 | EDPHYS ---
Physician Documentation [facility] Name: Gilma Urbano Age: 37 yrs Sex: Female : 1980 Arrival Date: 06/10/2018 Time: 11:17 Bed 26 Private MD: Benny Zheng ED Physician Juancarlos Pimentel HPI: 06/10 12:21 This 37 yrs old Female presents to ER via Wheelchair with complaints of rn Dizziness. 12:21 The patient presents with dizziness, feeling faint, vertigo. Onset: The rn symptoms/episode began/occurred 10 day(s) ago. Modifying factors: The symptoms are alleviated by nothing, the symptoms are aggravated by changing position. Severity of symptoms: At their worst the symptoms were mild in the emergency department the symptoms are unchanged. The patient has experienced similar episodes in the past. Reports dizziness and vertigo, began 10 days ago, + hx of vertigo, was using bathroom and stood up, got dizzy, hit head on bathroom stall, no LOC, has been feeling dizzy with change in position since then.. 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 - Social history:: Smoking status: Patient/guardian denies using tobacco. - Ebola Screening: : No symptoms or risks identified at this time. - Family history:: not pertinent. - Hospitalizations: : No recent hospitalization is reported. ROS: 12:21 Constitutional: Negative for fever, chills, and weight loss, Eyes: Negative for injury, rn pain, redness, and discharge, Neck: Negative for injury, pain, and swelling, Cardiovascular: Negative for chest pain, palpitations, and edema, Respiratory: Negative for shortness of breath, cough, wheezing, and pleuritic chest pain, Abdomen/GI: Negative for abdominal pain, nausea, vomiting, diarrhea, and constipation, MS/Extremity: Negative for injury and deformity, Skin: Negative for injury, rash, and discoloration, Neuro: Negative for headache, weakness, numbness, tingling, and seizure. Exam: 12:21 Constitutional: This is a well developed, well nourished patient who is awake, alert, rn and in no acute distress. Head/Face: Normocephalic, atraumatic. Eyes: Pupils equal round and reactive to light, extra-ocular motions intact. Lids and lashes normal. Conjunctiva and sclera are non-icteric and not injected. Cornea within normal limits. Periorbital areas with no swelling, redness, or edema. ENT: MMM Neck: Supple, full range of motion without nuchal rigidity, or vertebral point tenderness. Skin: Warm, dry with normal turgor. Normal color with no rashes, no lesions, and no evidence of cellulitis. MS/ Extremity: Pulses equal, no cyanosis. Neurovascular intact. Full, normal range of motion. Equal circumference. Neuro: Awake and alert, GCS 15, oriented to person, place, time, and situation. Cranial nerves II-XII grossly intact. Motor strength 5/5 in all extremities. Sensory grossly intact. Cerebellar exam normal. Vital Signs: 11:34 BP 105 / 76; Pulse 83; Resp 16; Temp 98.6; Pulse Ox 98% on R/A; Pain 0/10; hb 13:24 BP 111 / 75; Pulse 81; Resp 16; Pulse Ox 99% on R/A; aj MDM: 11:40 Patient medically screened. rn 13:14 Differential diagnosis: head injury, hypovolemia, idiopathic dizziness, vertigo. Data rn reviewed: vital signs, nurses notes, lab test result(s), radiologic studies, CT scan, and as a result, I will discharge patient. Counseling: I had a detailed discussion with the patient and/or guardian regarding: the historical points, exam findings, and any diagnostic results supporting the discharge/admit diagnosis, lab results, radiology results, the need for outpatient follow up, to return to the emergency department if symptoms worsen or persist or if there are any questions or concerns that arise at home. Special discussion: I discussed with the patient/guardian in detail that at this point there is no indication for admission to the hospital. It is understood, however, that if the symptoms persist or worsen the patient needs to return immediately for re-evaluation. 06/10 12:23 Order name: Urine Dipstick--Ancillary (enter results) eb 06/10 12:23 Order name: Urine --Ancillary (enter results) eb 06/10 11:46 Order name: Urine Dipstick-Ancillary (obtain specimen); Complete Time: 12:20 rn 06/10 11:46 Order name: Urine Test (obtain specimen); Complete Time: 12:20 rn 06/10 11:46 Order name: CT Head Brain wo Cont; Complete Time: 12:26 rn Administered Medications: 11:58 Drug: Meclizine 50 mg Route: PO; aj 13:26 Follow up: Response: No adverse reaction aj Disposition: 06/10/18 13:15 Discharged to Home. Impression: Vertigo, Concussion. - Condition is Stable. - Discharge Instructions: Vertigo. - Prescriptions for Meclizine 25 mg Oral Tablet - take 1 tablet by ORAL route every 8 hours As needed; 30 tablet. - Medication Reconciliation Form, Thank You Letter, Antibiotic Education, Prescription Opioid Use form. - Follow up: Private Physician; When: As needed; Reason: Recheck today's complaints, Re-evaluation by your physician. - Problem is new. - Symptoms have improved. Signatures: Dispatcher [employer] EDAngie Lama RN RN aj Nieto, Roman, MD MD rn Baxter, Heather, RN RN Corrections: (The following items were deleted from the chart) 13:26 13:15 06/10/2018 13:15 Discharged to Home. Impression: Vertigo; Concussion. Condition aj is Stable. Forms are Medication Reconciliation Form, Thank You Letter, Antibiotic Education, Prescription Opioid Use. Follow up: Private Physician; When: As needed; Reason: Recheck today's complaints, Re-evaluation by your physician. Problem is new. Symptoms have improved. rn
[2018-06-10 14:12] LABS: Urine Blood TRACE (NEG); Urine Glucose NEGATIVE (NEG); Urine Protein NEGATIVE (NEG)
== END 2018-06-10 13:26 | disposition home or self-care (01) ==
LOC: ER 11:12
DX: S06.0X0A Concussion without loss of consciousness, initial encounter (principal); W22.8XXA Striking against or struck by other objects, initial encounter; R42 Dizziness and giddiness; F41.9 Anxiety disorder, unspecified; F90.9 Attention-deficit hyperactivity disorder, unspecified type; F32.9 Major depressive disorder, single episode, unspecified
CPT/HCPCS: 70450; 81003; 81025; 99284

== ENCOUNTER 2019-04-21 10:06 | Emergency (ER) | payer OTHER ==
[2019-04-21] MEDS ORDERED: IBUPROFEN 200 MG TAB PO ONE (10:49)
--- NOTE | 2019-04-21 23:31 | ER ---
Nurse's Notes [facility] Name: Gilma Urbano Age: 38 yrs Sex: Female : 1980 Arrival Date: 04/21/2019 Time: 10:10 Bed 30 Private MD: Diagnosis: Influenza due to unidentified influenza virus Presentation: 04/21 10:10 Presenting complaint: Patient states: cough, chest congestion, and sore throat. Ax. aa5 None, Hx. None, Sx. , liposuction, tummy tuck, Appendectomy. Transition of care: patient was not received from another setting of care. Onset of symptoms was March 2019. Risk Assessment: Do you want to hurt yourself or someone else? Patient reports no desire to harm self or others. Care prior to arrival: None. 10:10 Acuity: CARRIE 4 aa5 10:10 Method Of Arrival: Ambulatory aa5 10:10 Initial Sepsis Screen: Does the patient meet any 2 criteria? Temp <36.0*C (96.8*F)) or aa5 > 38.3*C (100.9*F). HR > 90 bpm. Does the patient have a suspected source of infection? No. Patient's initial sepsis screen is negative. 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 - Social history:: Smoking status: Patient/guardian denies using tobacco. - Ebola Screening: : No symptoms or risks identified at this time. Screenin:40 Abuse screen: Denies threats or abuse. Denies injuries from another. Nutritional aj1 screening: No deficits noted. Tuberculosis screening: No symptoms or risk factors identified. 11:32 Fall Risk None identified. aj1 Assessment: 10:40 General: Appears in no apparent distress. uncomfortable, ill, Behavior is calm, aj1 cooperative, appropriate for age. Pain: Complains of pain in back and chest Pain does not radiate. Pain currently is 7 out of 10 on a pain scale. Neuro: Level of Consciousness is awake, alert, obeys commands, Oriented to person, place, time, situation. Cardiovascular: Heart tones S1 S2 present Patient's skin is warm and dry. Respiratory: Reports shortness of breath on exertion cough that is hacking, persistent Airway is patent Respiratory effort is even, unlabored, Respiratory pattern is regular, symmetrical, Breath sounds are coarse bilaterally. GI: No signs and/or symptoms were reported involving the gastrointestinal system. : No signs and/or symptoms were reported regarding the genitourinary system. EENT: Throat is reddened bilaterally Reports sore throat. Derm: Skin is flushed. Musculoskeletal: No signs and/or symptoms reported regarding the musculoskeletal system. Circulation, motion, and sensation intact. 11:32 Reassessment: Patient appears in no apparent distress at this time. No changes from aj1 previously documented assessment. Patient and/or family updated on plan of care and expected duration. Pain level reassessed. Vital Signs: 10:11 BP 133 / 92; Pulse 120; Resp 20 S; Temp 103.2(O); Pulse Ox 100% on R/A; Weight 83.91 kg aa5 (R); Height 5 ft. 3 in. (160.02 cm) (R); 10:11 Body Mass Index 32.77 (83.91 kg, 160.02 cm) aa5 ED Course: 10:10 Patient arrived in ED. aa5 10:10 Triage completed. aa5 10:10 Arm band placed on. aa5 10:14 Leonard Murray PA is PHCP. [facility] 10:14 Juana Edwards MD is Attending Physician. [facility] 10:17 Malinda Puente, RN is Primary Nurse. aj1 10:40 Patient has correct armband on for positive identification. Bed in low position. Call aj1 light in reach. 10:40 No provider procedures requiring assistance completed. aj1 11:32 Patient did not have IV access during this emergency room visit. aj1 Administered Medications: No medications were administered Outcome: 11:19 Discharge ordered by MD. [facility] 11:32 Discharged to home ambulatory. aj1 11:32 Condition: good 11:32 Discharge instructions given to patient, Instructed on discharge instructions, follow up and referral plans. medication usage, Demonstrated understanding of instructions, follow-up care, medications, Prescriptions given X 1. 11:33 Patient left the ED. aj1 Signatures: Malinda Puente, RN RN aj Leonard Murray PA PA Sheila Barnett RN RN aa5 Corrections: (The following items were deleted from the chart) 10:11 10:10 Presenting complaint: Patient states: cough, chest congestion, and sore throat. aa5 aa5
--- NOTE | 2019-04-21 23:31 | EDPHYS ---
Physician Documentation [facility] Name: Gilma Urbano Age: 38 yrs Sex: Female : 1980 Arrival Date: 04/21/2019 Time: 10:10 Bed 30 Private MD: ED Physician Juana Edwards HPI: 04/21 10:43 This 38 yrs old Female presents to ER via Ambulatory with complaints of Flu jmm Symptoms. 10:43 Onset: The symptoms/episode began/occurred gradually, 1 day(s) ago. Modifying factors: jmm The symptoms are alleviated by nothing. the symptoms are aggravated by nothing. Associated signs and symptoms: Pertinent positives: fever, sore throat. This is a 38 year old female with no chronic medical conditions that presents to the ED with complaints of cough, sore throat, beginning 1 day ago. Denies vomiting or diarrhea. . 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 - Social history:: Smoking status: Patient/guardian denies using tobacco. - Ebola Screening: : No symptoms or risks identified at this time. ROS: 10:43 Neck: Negative for injury, pain, and swelling, Cardiovascular: Negative for chest pain, jmm palpitations, and edema. 10:43 Abdomen/GI: Negative for abdominal pain, nausea, vomiting, diarrhea, and constipation. 10:43 Constitutional: Positive for body aches, chills, fever. 10:43 ENT: Positive for sore throat. 10:43 Respiratory: Positive for cough. 10:43 All other systems are negative. Exam: 10:43 Constitutional: This is a well developed, well nourished patient who is awake, alert, jmm and in no acute distress. Head/Face: atraumatic. Eyes: EOMI, no conjunctival erythema appreciated 10:43 Neck: Trachea midline, Supple Chest/axilla: Normal chest wall appearance and motion. Cardiovascular: Regular rate and rhythm. No edema appreciated Respiratory: Normal respirations, no respiratory distress appreciated Abdomen/GI: Non distended, soft Back: Normal ROM Skin: General appearance color normal MS/ Extremity: Moves all extremities, no obvious deformities appreciated, no edema noted to the lower extremities Neuro: Awake and alert, normal gait Psych: Behavior is normal, Mood is normal, Patient is cooperative and pleasant 10:43 ENT: TM's: erythema, that is mild, bilaterally, Posterior pharynx: erythema, that is mild. Vital Signs: 10:11 BP 133 / 92; Pulse 120; Resp 20 S; Temp 103.2(O); Pulse Ox 100% on R/A; Weight 83.91 kg aa5 (R); Height 5 ft. 3 in. (160.02 cm) (R); 10:11 Body Mass Index 32.77 (83.91 kg, 160.02 cm) aa5 MDM: 10:34 Patient medically screened. [facility] 11:17 Data reviewed: vital signs, nurses notes. Counseling: I had a detailed discussion with alexis the patient and/or guardian regarding: the historical points, exam findings, and any diagnostic results supporting the discharge/admit diagnosis, lab results, the need for outpatient follow up. ED course: Patient is alert and non toxic in appearance in the ED. PE and clinical symptoms appear consistent with influenza. Will treat with tamiflu. Patient is advised to follow up with pcp and otherwise given strict return precautions. Patient understood and agrees with the plan of care. . Administered Medications: No medications were administered Disposition: 15:53 Co-signature as Attending Physician, Juana Edwards MD. ma2 Disposition: 04/21/19 11:19 Discharged to Home. Impression: Influenza due to unidentified influenza virus. - Condition is Stable. - Discharge Instructions: Influenza, Adult. - Prescriptions for Tamiflu 75 mg Oral Capsule - take 1 tablet by ORAL route every 12 hours for 5 days; 10 tablet. - Work release form, Medication Reconciliation Form, Thank You Letter, Antibiotic Education, Prescription Opioid Use form. - Follow up: Private Physician; When: 2 - 3 days; Reason: Recheck today's complaints, Continuance of care, Re-evaluation by your physician. Signatures: Malinda Puente RN RN aj1 Lenoard Murray PA PA jmm Calderon, Audri, RN RN aa5 Juana Edwards MD MD ma2 Corrections: (The following items were deleted from the chart) 11:33 11:19 04/21/2019 11:19 Discharged to Home. Impression: Influenza due to unidentified aj1 influenza virus. Condition is Stable. Forms are Medication Reconciliation Form, Thank You Letter, Antibiotic Education, Prescription Opioid Use. Follow up: Private Physician; When: 2 - 3 days; Reason: Recheck today's complaints, Continuance of care, Re-evaluation by your physician. alexis
== END 2019-04-21 11:33 | disposition home or self-care (01) ==
LOC: ER 11:33
DX: J11.1 Influenza due to unidentified influenza virus with other respiratory manifestations (principal)
CPT/HCPCS: 87070; 87081; 87804; 99282

== ENCOUNTER 2019-04-25 14:54 | Emergency (ER) | payer OTHER ==
--- NOTE | 2019-04-25 16:11 | RAD REPORT ---
EXAM DESCRIPTION: RAD - Chest Pa And Lat (2 Views) - 04/25/2019 3:37 pm CLINICAL HISTORY: COUGH COMPARISON: January 2015 TECHNIQUE: PA and lateral views of the chest were obtained. FINDINGS: The lungs are clear. Heart size is normal and central vasculature is within normal limit s. No pleural effusion or pneumothorax seen. No acute bony finding noted. No aortic abnormality. No significant change from comparison. IMPRESSION: No acute cardiopulmonary process.
[2019-04-25] MEDS ORDERED: predniSONE 20 MG TAB ONE (16:21)
[2019-04-25] MEDS ORDERED: ALBUTEROL 2.5 MG/3 ML NEB SOL ONE (16:21)
[2019-04-25] MEDS ORDERED: IPRATROPIUM BROM 0.5MG/2.5ML ONE (16:21)
--- NOTE | 2019-04-25 16:54 | ER ---
Nurse's Notes [facility] Name: Gilma Urbano Age: 38 yrs Sex: Female : 1980 Arrival Date: 04/25/2019 Time: 14:55 Bed 27 Private MD: Diagnosis: Acute laryngitis;Acute bronchitis Presentation: 04/25 15:17 Presenting complaint: Patient states: seen here Saturday, swabs negative, but treated sr5 with Tamiflu. c/o worsen cough and congestion. " I hear a rattling in my chest". 15:17 Acuity: CARRIE 4 sr5 16:00 Transition of care: patient was not received from another setting of care. Onset of ss symptoms was April 20, 2019. Risk Assessment: Do you want to hurt yourself or someone else? Patient reports no desire to harm self or others. Initial Sepsis Screen: Does the patient meet any 2 criteria? No. Patient's initial sepsis screen is negative. Does the patient have a suspected source of infection? No. Patient's initial sepsis screen is negative. Care prior to arrival: None. 16:00 Method Of Arrival: Ambulatory ss Triage Assessment: 15:18 General: Appears ill, Behavior is calm, cooperative. Pain: Denies pain. Pain: Denies sr5 pain. Complains of pain in chest and neck. EENT: Reports sore throat and chest. Neuro: Level of Consciousness is awake, alert, obeys commands, Oriented to person, place, time, situation. Cardiovascular: Patient's skin is warm and dry. Respiratory: Respiratory effort is even, unlabored, Respiratory pattern is regular, symmetrical. 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 - Social history:: Smoking status: Patient/guardian denies using tobacco, never smoked. - Ebola Screening: : Patient negative for fever greater than or equal to 101.5 degrees Fahrenheit, and additional compatible Ebola Virus Disease symptoms. Screenin:26 Abuse screen: Denies threats or abuse. Denies injuries from another. Nutritional ss screening: No deficits noted. Tuberculosis screening: Never had TB. Fall Risk None identified. Assessment: 16:00 General: Appears in no apparent distress. Behavior is calm, cooperative, Reports ss feeling ill for > 3 days, Pt reports feeling better, however her cough has not improved, but getting worse and her throat is now sore with a hoarse voice.. Neuro: Level of Consciousness is awake, alert, obeys commands, Oriented to person, place, time, situation. Cardiovascular: Capillary refill < 3 seconds in bilateral fingers Patient's skin is warm and dry. Respiratory: Airway is patent Respiratory effort is even, unlabored, Respiratory pattern is regular, symmetrical. Respiratory: Breath sounds with wheezes in left posterior lower lobe and right posterior lower lobe. GI: Patient currently denies abdominal pain, diarrhea, nausea, vomiting. EENT: Oral mucosa is moist. Throat is clear. Derm: Skin is intact, is healthy with good turgor, Skin is dry, Skin is pink, warm \\T\\ dry. normal. Musculoskeletal: Circulation, motion, and sensation intact. Range of motion: intact in all extremities. 17:11 Reassessment: Patient appears in no apparent distress at this time. Patient and/or ss family updated on plan of care and expected duration. Pain level reassessed. Patient is alert, oriented x 3, equal unlabored respirations, skin warm/dry/pink. Patient states feeling better. Patient states symptoms have improved. Respiratory: Breath sounds are clear bilaterally. Vital Signs: 15:18 BP 106 / 74; Pulse 92; Resp 18; Temp 98.2; Pulse Ox 100% on R/A; Weight 83.91 kg (R); sr5 Height 5 ft. 3 in. (160.02 cm); Pain 5/10; 15:18 Body Mass Index 32.77 (83.91 kg, 160.02 cm) sr5 ED Course: 14:55 Patient arrived in ED. as 15:18 Triage completed. sr5 15:18 Arm band placed on right wrist. sr5 15:35 Chest Pa And Lat (2 Views) XRAY In Process Unspecified. EDMS 15:41 Anna Maya FNP-C is PHCP. kb 15:41 Abundio White MD is Attending Physician. kb 15:41 PHCP role handed off by Anna Maya FNP-C la1 15:41 Yobani Snyder FNP-C is PHCP. la1 16:17 Christi Rice, RN is Primary Nurse. ss 16:26 Patient has correct armband on for positive identification. Bed in low position. Call ss light in reach. 16:43 No provider procedures requiring assistance completed. Patient did not have IV access ss during this emergency room visit. Administered Medications: 16:25 Drug: predniSONE 60 mg Route: PO; ss 17:11 Follow up: Response: No adverse reaction ss 16:26 Drug: Albuterol - atroVENT (3:1) (2.5 mg - 0.5 mg) 3 ml Route: Nebulizer; ss 17:11 Follow up: Response: No adverse reaction; Marked relief of symptoms; Wheezing diminishedss Outcome: 16:53 Discharge ordered by MD. la1 17:08 Discharged to home ambulatory, with family. ss 17:08 Condition: improved 17:08 Discharge instructions given to patient, Instructed on discharge instructions, follow up and referral plans. medication usage, Demonstrated understanding of instructions, follow-up care, medications, Prescriptions given X 3. 17:12 Patient left the ED. Signatures: Dispatcher [employer] EDMS Anna Maya FNP-C FNP-Jenniffer Scott as Christi Rice, RN RN Yobani Snyder FNP-C FNP-Cla1 Keith Gallo, RN RN sr5 Corrections: (The following items were deleted from the chart) 16:43 16:00 General: Appears in no apparent distress. Behavior is calm, cooperative, Reports ss feeling ill for > 3 days, ss
--- NOTE | 2019-04-25 16:55 | EDPHYS ---
Physician Documentation [facility] Name: Gilma Urbano Age: 38 yrs Sex: Female : 1980 Arrival Date: 04/25/2019 Time: 14:55 Bed 27 Private MD: ED Physician Abundio White HPI: 04/25 16:17 This 38 yrs old Female presents to ER via Unassigned with complaints of Sore la1 Throat, Chest Congestion, Flu+. 16:17 The patient presents with sore throat, hoarse voice. The patient describes throat pain la1 as constant. Onset: The symptoms/episode began/occurred yesterday. Severity of symptoms: At their worst the symptoms were moderate, in the emergency department the symptoms are unchanged. Modifying factors: The symptoms are alleviated by over the counter medications, the symptoms are aggravated by speaking, Denies contact with similarly ill indivduals. Associated signs and symptoms: Pertinent negatives chest pain, fever, headache, nausea. The patient has not experienced similar symptoms in the past. Pt had flu like sx earlier this week and is on her last does of tamiflu, those sx have gotten better but today started losing voice and having increased cough.. 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 - Social history:: Smoking status: Patient/guardian denies using tobacco, never smoked. - Ebola Screening: : Patient negative for fever greater than or equal to 101.5 degrees Fahrenheit, and additional compatible Ebola Virus Disease symptoms. ROS: 16:19 Constitutional: Negative for fever, chills, and weight loss, Eyes: Negative for injury, la1 pain, redness, and discharge, ENT: Negative for injury, pain, and discharge, Neck: Negative for injury, pain, and swelling, Cardiovascular: Negative for chest pain, palpitations, and edema, Abdomen/GI: Negative for abdominal pain, nausea, vomiting, diarrhea, and constipation, Back: Negative for injury and pain, : Negative for injury, bleeding, discharge, and swelling, MS/Extremity: Negative for injury and deformity, Neuro: Negative for headache, weakness, numbness, tingling, and seizure. Exam: 16:19 Constitutional: This is a well developed, well nourished patient who is awake, alert, la1 and in no acute distress. Head/Face: Normocephalic, atraumatic. Eyes: Pupils equal round and reactive to light, extra-ocular motions intact. Periorbital areas with no swelling, redness, or edema. ENT: Mucous membranes moist. Neck: Trachea midline, no thyromegaly or masses palpated, and no cervical lymphadenopathy. Supple, full range of motion without nuchal rigidity, or vertebral point tenderness. No Meningismus. Chest/axilla: Normal chest wall appearance and motion. Nontender with no deformity. No lesions are appreciated. Cardiovascular: Regular rate and rhythm with a normal S1 and S2. No gallops, murmurs, or rubs. Normal PMI, no JVD. No pulse deficits. Respiratory: Lungs have equal breath sounds bilaterally, clear to auscultation and percussion. No rales, rhonchi or wheezes noted. No increased work of breathing, no retractions or nasal flaring. 16:19 Abdomen/GI: Soft, non-tender, with normal bowel sounds. No distension or tympany. No guarding or rebound. No evidence of tenderness throughout. Back: No spinal tenderness. No costovertebral tenderness. Full range of motion. MS/ Extremity: Pulses equal, no cyanosis. Neurovascular intact. Full, normal range of motion. 16:19 ENT: Voice: is hoarse. Vital Signs: 15:18 BP 106 / 74; Pulse 92; Resp 18; Temp 98.2; Pulse Ox 100% on R/A; Weight 83.91 kg (R); sr5 Height 5 ft. 3 in. (160.02 cm); Pain 5/10; 15:18 Body Mass Index 32.77 (83.91 kg, 160.02 cm) sr5 MDM: 15:44 Patient medically screened. la1 16:52 Data reviewed: vital signs, nurses notes, radiologic studies, I have discussed the la1 patient's presentation/case with the attending Emergency Department Physician; and as a result, I will discharge patient. Data interpreted: Pulse oximetry: on room air is 100 %. Interpretation: normal. Test interpretation: by ED physician or midlevel provider: plain radiologic studies. Counseling: I had a detailed discussion with the patient and/or guardian regarding: the historical points, exam findings, and any diagnostic results supporting the discharge/admit diagnosis, radiology results, the need for outpatient follow up, a family practitioner. Special discussion: Based on the patient's Hx, exam, and Dx evaluation, there is no indication for emergent surgery or inpatient Tx. It is understood by the patient/guardian that if the Sx's persist or worsen they need to return immediately for re-evaluation. I discussed with the patient/guardian that the patient's current presentation does not indicate dosing of antibiotics. They should follow-up with their primary care provider and return if the symptoms persist or progress. 04/25 15:21 Order name: Chest Pa And Lat (2 Views) XRAY; Complete Time: 16:17 sr5 Administered Medications: 16:25 Drug: predniSONE 60 mg Route: PO; ss 17:11 Follow up: Response: No adverse reaction ss 16:26 Drug: Albuterol - atroVENT (3:1) (2.5 mg - 0.5 mg) 3 ml Route: Nebulizer; ss 17:11 Follow up: Response: No adverse reaction; Marked relief of symptoms; Wheezing diminishedss Disposition: 19:47 Co-signature as Attending Physician, Abundio White MD I agree with the assessment and toñito plan of care. Disposition: 04/25/19 16:53 Discharged to Home. Impression: Acute laryngitis, Acute bronchitis. - Condition is Stable. - Discharge Instructions: Acute Bronchitis, Adult, Laryngitis, Upper Respiratory Infection, Adult. - Prescriptions for Tessalon Perles 100 mg Oral Capsule - take 1 capsule by ORAL route every 8 hours As needed; 15 capsule. Medrol (Tyrel) 4 mg Oral Tablets, Dose Pack - take 1 tablet by ORAL route as directed - follow package instructions; 1 packet. Albuterol Sulfate 90 mcg/actuation - inhale 1-2 puff by INHALATION route every 4-6 hours; 1 Inhaler. - Medication Reconciliation Form, Thank You Letter, Antibiotic Education form. - Follow up: Private Physician; When: 2 - 3 days; Reason: Recheck today's complaints, Re-evaluation by your physician. - Problem is new. - Symptoms have improved. Signatures: Dispatcher [employer] Abundio Loredo MD MD cha Smirch, Shelby, RN RN ss Yobani Snyder, ROUSTABOUT PUSHER-C ROUSTABOUT PUSHER-Cla1 Keith Gallo RN RN sr5 Corrections: (The following items were deleted from the chart) 17:12 16:53 04/25/2019 16:53 Discharged to Home. Impression: Acute laryngitis; Acute ss bronchitis. Condition is Stable. Forms are Medication Reconciliation Form, Thank You Letter, Antibiotic Education, Prescription Opioid Use. Follow up: Private Physician; When: 2 - 3 days; Reason: Recheck today's complaints, Re-evaluation by your physician. Problem is new. Symptoms have improved. la1
[2019-04-25 17:36] VITALS: BP 106/74; TEMP 98.2; O2SAT 100
== END 2019-04-25 17:12 | disposition home or self-care (01) ==
LOC: ER 14:54
DX: J20.9 Acute bronchitis, unspecified (principal); J04.0 Acute laryngitis
CPT/HCPCS: 71046; 94640; 99284; J7512

== ENCOUNTER 2022-05-07 07:39 | Emergency (ER) | payer OTHER ==
--- OUTSIDE RECORDS SUMMARY | 2022-05-07 07:42 | XMS REPORT | Continuity of Care Document ---
:1980 Author Organization [facility] t Address [address] [place] [address] Care Team Providers Name Role Phone BHARTI BOWMAN Primary Care Physician Unavailable OSMAR FONTENOT Attending Clinician Unavailable Only, Ang Db Test Attending Clinician Unavailable Osmar Fontenot MD Attending Clinician Donovan Lowery DO Attending Clinician Dmitry Rutherford MD Attending Clinician Ubaldo Garcia MD Attending Clinician [phone] Mick Singh MD Attending Clinician Doctor Unassigned, [place] Attending Clinician Unavailable Lab, Adc Fam Pob I Attending Clinician Unavailable Merary Morales Attending Clinician MERARY PLEITEZ Attending Clinician Unavailable Ubaldo Garcia MD Admitting Clinician [phone] Payers Payer Name Policy Type Policy Number Effective Date Expiration Date S jessica DUMASR FROM [id number] 2020 [facility] 00:00:00 Problems This patient has no known problems. Allergies, Adverse Reactions, Alerts Allergy Allergy Status Severity Reaction(s) Onset Inactive Treating Comm ents Source Name Type Date Date Clinician NO KNOWN Drug Active Univers ALLERGIE Class ity of S [facility] Social History Social Habit Start Date Stop Date Quantity Comments Source Exposure to Not sure [facility] SARS-CoV-2 (event) Medica Branch Sex Assigned At [birth year] [facility] [place] 00:00:00 00:00:00 Medical Branch Smoking Status Start Date Stop Date Source Unknown if ever smoked [facility] Medications Ordered Filled Start Stop Current Ordering Indication Dosage Frequency Signature Comments Components Source Medication Medication Date Date Medication? Clinician (SIG) Name Name Niels Yes [id number] 750mg Take 1 Univers n 7-20 tablet by ity of (LEVAQUIN) 00:00: mouth [place] 750 mg 00 every 24 Medical tablet (twenty-fo Branch ur) hours. tamsulosin Yes [id number] .4mg Take 1 U nivers 0.4 mg 24 7-17 capsule by ity of hr capsule 00:00: mouth [place] 00 daily. Medical Branch ketorolac Yes [id number] 10mg Take 1 Un hayden 10 mg 7-17 tablet by ity of tablet 00:00: mouth [place] 00 every 6 Medical (six) Branch hours as needed for Pain (scale 7-10). gabapentin Yes [id number] 300mg Take 1 Univers 300 mg 7-17 capsule by ity of capsule 00:00: mouth 3 [place] 00 (three) Medical times Branch daily. sulfamethox Yes [id number] 1{tbl} Take 1 Univers azole-trime 7-17 tablet by ity of thoprim 00:00: mouth 2 [place] 800-160 mg 00 (two) Medical per tablet times Branch daily. acetaminoph 2021- No [id number] 650mg Take 2 Univers en 7-17 07-18 tablets by ity of (TYLENOL) 00:00: 04:59 mouth [place] 325 mg 00 :00 every 6 Medical tablet (six) Branch hours as needed for Pain (scale 1-3) or Pain (scale 4-6). Procedures This patient has no known procedures. Encounters Start End Encounter Admission Attending Care Care Encounter Source Date/Time Date/Time Type Type Clinicians Facility Department ID 2021-02-27 Emergency [facility] [id number] [facility] X [facility] [id number] [facility] Emergency X [facility] [id number] Univers 08:52:35 ity [facility] 2021-02-27 Emergency [facility] [id number] Univers 08:52:00 ity [facility] 2021-03-13 2021-03-13 Outpatient R JOSE MANUEL [facility] [id number] Univers 09:15:00 09:39:39 OSMAR ity [facility] 2021-03-13 2021-03-13 Laboratory Only, Ang Db Test [facility] [id number] Univers 09:14:35 09:29:35 Only Jose Manuel Osmar [facility] [id number] ity of [facility] [id number] Jose Angel as DONALD?BLEA [phone] [address] MEDICAL OFFICE BUILDING 2021-03-13 2021-03-13 Outpatient Jason FONTENOT [facility] [id number] Univers 09:15:00 09:15:00 [facility] 2020-11-16 2020-11-16 Emergency [facility] [id number] Univers 03:20:00 05:07:00 Donovan Hernadez [id number] i [place] [id number] [place] [facility] [phone] [facility] [address] 2020-11-15 2020-11-15 Telephone CAROL Rutherford [id number] Univers 00:00:00 00:00:00 Dmitry REMY [id number] it y of HOSPITAL [id number] Jose Angel as [phone] [facility] [address] Branch 2020-11-12 2020-11-12 Emergency Sreshta, TRAUMA [id number] Univers 17:23:00 19:30:00 [facility] [id number] it y of [facility] [id number] Jose Angel as [phone] [facility] 014 Branch 2020-11-12 2020-11-12 [facility] [id number] Univers 13:17:00 16:15:00 Mick Hernadez [id number] i [place] [id number] [place] [phone] [facility] 084 [address] 2020-11-12 2020-11-12 Orders Doctor CAROL [id number] Univers 00:00:00 00:00:00 Only Unassigned, JONEL [id number] ity of [place] [facility] [id number] Jose Angel as [phone] [facility] 009 Branch 2019-12-08 2019-12-08 Laboratory Lab, Adc Fam Pob I [facility] [id number]. [id number] Univers 14:32:30 14:52:30 Only Merary Pleitez [id number] ity of [place] [id number] Jose Angel as Professio [phone] [facility] [address] 2019-12-08 2019-12-08 Outpatient R MAIK [facility] [id number] Univers 14:35:00 14:35:00 MERARY ity of [facility] 2019-12-08 2019-12-08 Letter Doctor CAROL [id number] Univers 00:00:00 00:00:00 (Out) Unassigned, JONEL [id number] ity of [place] [facility] [id number] Jose Angel as [phone] [address] Results This patient has no known results.
[2022-05-07 07:59] LABS: Urine Blood Trace-intact (Negative); Urine Glucose Negative (Negative); Urine Protein Negative (Negative)
[2022-05-07 08:16] LABS: Absolute Lymphocytes (CBC) 3.1 K/uL (0.7-4.9); Hematocrit 36.2 % (36.0-45.0); Lymphocytes % 40.1 % (15.3-44.8); MCV 83.7 fL (80-100); MPV 8.1 fL (7.6-11.3); RBC Red Blood Cell Count 4.32 M/uL (3.86-4.86)
[2022-05-07] MEDS ORDERED: KETOROLAC 30 MG/ML INJ ONE (08:17)
[2022-05-07] MEDS ORDERED: NA CHLORIDE 0.9% 1,000 ML ONE (08:17)
[2022-05-07] MEDS ORDERED: ONDANSETRON 4 MG/2 ML VIAL ONE (08:17)
[2022-05-07] MEDS ORDERED: LORazepam 2 MG/ML VIAL ONE (08:25)
[2022-05-07 08:44] LABS: Potassium 3.4 mmol/L (3.5-5.1)
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
[2022-05-07] MEDS ORDERED: POTASSIUM 25 MEQ EFFERV TAB ONE (09:14)
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
[2022-05-07 10:14] VITALS: TEMP 97.2
[2022-05-07 10:15] VITALS: BP 131/73; O2SAT 98
== END 2022-05-07 09:52 | disposition home or self-care (01) ==
LOC: ER 07:39
DX: S29.012A Strain of muscle and tendon of back wall of thorax, initial encounter (principal); S29.011A Strain of muscle and tendon of front wall of thorax, initial encounter; E87.6 Hypokalemia; V49.49XA Driver injured in collision with other motor vehicles in traffic accident, initial encounter
CPT/HCPCS: 96361; 85025; 80048; 36415; 81025; 81003; 83690; 70450; 72125; 71260; 74177; 96375; 96374; 99284; Q9967; J7030; J2405

== ENCOUNTER → 2022-07-06 | Day surgery (SDC) | payer OTHER ==
--- NOTE | 2022-07-06 13:59 | RAD REPORT ---
EXAM DESCRIPTION: US - Breast Core BX w/US Guidance - 07/06/2022 11:07 am CLINICAL HISTORY: Left breast mass COMPARISON: Ultrasound 06/27/2022 TECHNIQUE: The risks, benefits alternatives to the procedure were explained to the patient and infor med consent obtained. Skin and subcutaneous tissues anesthetized with lidocaine. Under sonographic guidance, 3 x 14 gauge vacuum assisted core biopsies of the mass within the left br east obtained. 2 centimeter specimens taken. Tissue given to pathology. Subsequently a localizing clip was placed into the mass. Patient experienced no immediate complication IMPRESSION: Technically successful ultrasound-guided core biopsy of the suspicious left breast polina guaman No immediate complications.
== END ==
LOC: DS 08:00
PROVIDERS: ATTEND Nurse Practitioner Women's Health
DX: R92.8 Other abnormal and inconclusive findings on diagnostic imaging of breast (principal)
CPT/HCPCS: 19083; 88305

== ENCOUNTER 2022-09-17 06:54 | Day surgery (SDC) | payer OTHER ==
[2022-09-13 15:35] LABS: Absolute Lymphocytes (CBC) 1.7 K/uL (0.7-4.9); Hematocrit 39.4 % (36.0-45.0); Lymphocytes % 23.9 % (15.3-44.8); MCV 84.9 fL (80-100); MPV 8.2 fL (7.6-11.3); RBC Red Blood Cell Count 4.64 M/uL (3.86-4.86)
[2022-09-13 15:55] LABS: Potassium 2.9 mEq/L (3.5-5.1)
--- NOTE | 2022-09-14 07:45 | RAD REPORT ---
EXAM DESCRIPTION: [facility] Pa And Lat (2 Views)09/13/2022 3:20 pm CLINICAL HISTORY: Pre op pending breast lumpectomy. Hypertension COMPARISON: Chest Pa And Lat (2 Views) dated 04/25/2019; CHEST SINGLE VIEW dated 02/13/2015; CHEST P A AND LAT 2 VIEW dated 06/07/2009 TECHNIQUE: PA and lateral views of the chest. FINDINGS: The lungs are clear. No pneumothorax or effusion. The cardiomediastinal contours are unrem arkable. IMPRESSION: No acute cardiopulmonary process.
--- NOTE | 2022-09-16 17:38 | EKG ---
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
[2022-09-17] MEDS ORDERED: Ringers Lactate 1,000 ML IV ONE (07:18)
[2022-09-17] MEDS: MIDAZOLAM HCL 2 MG/2 ML INJ ONE (10:10)
[2022-09-17] MEDS: CEFAZOLIN SODIUM 1 GM/VIAL ONE ×2 (10:33→11:07)
[2022-09-17] MEDS ORDERED: propofoL 200 MG/20 ML VIAL IV ONE (10:50)
[2022-09-17] MEDS ORDERED: MIDAZOLAM HCL 2 MG/2 ML INJ ONE (10:50)
[2022-09-17] MEDS ORDERED: LIDOCAINE 2% MPF 5 ML VIAL ONE (10:51)
[2022-09-17] MEDS ORDERED: FENTANYL CITR 100 MCG/2 ML ONE (10:51)
[2022-09-17] MEDS ORDERED: ROCURONIUM 50 MG/5 ML VIAL IV ONE (10:51)
[2022-09-17] MEDS ORDERED: ONDANSETRON 4 MG/2 ML VIAL ONE (10:52)
[2022-09-17] MEDS ORDERED: dexAMETHasone 10 MG/ML VIAL ONE (11:32)
--- NOTE | 2022-09-17 12:08 | P.BOP ---
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
[2022-09-17] MEDS ORDERED: GLYCOPYRROLATE 0.2 MG/ML SYR ONE (12:13)
[2022-09-17] MEDS ORDERED: NEOSTIGMINE 1 MG/ML -10 ML VIAL ONE (12:13)
[2022-09-17] MEDS ORDERED: KETOROLAC 30 MG/ML INJ ONE (12:17)
[2022-09-17] MEDS: FENTANYL CITR 100 MCG/2 ML ONE ×2 (12:33→12:37)
[2022-09-17 12:44] VITALS: O2SAT 98
[2022-09-17] MEDS ORDERED: HYDROCODONE/APAP 5/325 MG TAB ONE (13:27)
--- NOTE | 2022-09-17 13:44 | RAD REPORT ---
EXAM DESCRIPTION: [facility] BRE[facility] NEEDLE LOCAL[facility]ATION - 09/17/2022 9:33 am CLINICAL HISTORY: Left breast Needle localization. Concern for breast cancer TECHNIQUE AND FINDINGS: Full field left CC and MLO views were initially obtained, demonstrating sati sfactory positioning of the clip, just at the posterior margin of the focal asymmetry in the medial s uperior left breast posterior depth. The risks and benefits were explained to the patient, and an informed consent was obtained. Given the benign appearance of the inferior medial left breast asymmetry, most suggestive of an [place] breast tissue, recommendation was made to continue follow-up of this asymmetry for a total period of 2 years, pending pathology results of the superior most lesion. The patient understood and was agr eeable to that decision. Time-out procedure was performed. The skin, subcutaneous tissues and breast tissue were anesthetized utilizing 1% lidocaine. Under mammographic guidance, and through a CC from above approach, a 7.5 centimeter [place] wire locali zation needle was placed into the medial superior left breast focal asymmetry. Once the satisfactory position of the needle was obtained, imaging was then performed in the LM projection, and a needle po sition was adjusted further. Once a satisfactory needle position was obtained, the wire was deployed. The wire was dressed and draped in the usual fashion. The patient then left the Radiology department, headed to the OR. She tolerated the procedure well. IMPRESSION: Successful Mammographically-guided needle wire localization of a left breast mass. BI-RADS: Suspicious abnormality. Biopsy should be considered. ResultCode: S
--- NOTE | 2022-09-17 13:50 | DS ---
Diagnosis: Left inner upper breast mass. Procedure: Excisional biopsy, lumpectomy of left inner upper breast. Disposition: Home. Activity: As tolerated. No heavy lifting. Plan: Follow up in my office. Call for appointment at [phone]. Keep area dry for 48 hour, then af ter that may shower, but keep Steri-Strips intact. The patient was advised importance of using breas t support all time. WILMA/TORI Voice ID: [id number] Report ID: [id number]
--- NOTE | 2022-09-17 14:05 | OP ---
Date of Procedure: 09/17/2022 Surgeon: Saulo Painter MD Stamp Analyst: Malika Wong. Preoperative Diagnosis: Left inner upper breast mass. Postoperative Diagnosis: Left inner upper breast mass. Procedure: Excisional biopsy, lumpectomy of left breast mass, needle localized. Estimated Blood Loss: Less than 10 mL. Specimen: Needle and clip within the specimen by radiologist, Dr. Hammer. Anesthesia: General plus local. Indication: This is the case of a 41-year-old patient, who comes to the office with 2 problems, 2 ar eas in the breast, left inner upper breast and left inner lower breast. The left inner upper breast recently had a core biopsy, although the pathology specimen specified the area may not represent the biopsy, so the patient wants that lump removed, left upper inner breast. The patient also for the last few months she has been followed by the left inner lower breast area, which is the one that has been causing all this imaging last time when she has the upper one removed, a bio psy was done, so she questioned about the left inner lower breast to see if there is anything there t o biopsy at the same time. We reached out to the radiologist and discussed the case last Saturday and today again. Today, the patient and the radiologist talked and decided based on the findings that th ey have today that the inner lower breast will not be done at this moment. They will follow up with imaging and they only are going to localize and remove today the lump located in the inner upper [address]. For that reason, the patient went this morning and have localized that area by the radiologist. There is a clip already in that region. The patient brought from there to the our surgical suite elisabeth odonnell sure the wire is protected at all time. The benefits, alternatives, and risks of an excisional biopsy, lumpectomy of left breast mass fully explained, which include, but not limited to infection, bleeding, damage to adjacent structures, anesthesia complication, deformities, scar, chronic pain, VT , and even . She also understands this may not relieve any symptoms. She might need more than one surgical intervention. She understood, signed a consent. She already went this morning to Radio logy suite where she had localization of the lesion of concern by the radiologist. Procedure In Detail: The patient was brought to the operating room, placed in supine position. Anes thesia was done without complication. A time-out was called. Left breast was prepped and draped in the usual sterile fashion. I made an incision near the area of the wire. The wire then was brought into the surgical area and secured in place to the lesion using Allis. We proceeded to do a lumpecto my in that area. That mass was removed. The lesion and the wire were held together and marked for o rientation and sent to the radiologist, and Dr. Hammer called me back that the lesion and the wire ar e within the specimen. The area was irrigated. Hemostasis was obtained in the way. We closed this with a 3-0 chromic and 4-0 PDS running with a Steri-Strip on top. This was after sponge count and in strument count were correct, and after hemostasis was obtained. We also used local anesthetic. The patient was sent to recovery in stable condition. WILMA/TORI Voice ID: [id number] Report ID: [id number]
[2022-09-17 16:14] VITALS: BP 116/64; TEMP 97.1
== END 2022-09-17 14:15 | disposition home or self-care (01) ==
LOC: OR 06:54
PROVIDERS: ATTEND Surgery
PROC: 0HBU0ZX Excision of Left Breast, Open Approach, Diagnostic (ICD-10-PCS; principal; 2022-09-17 10:15)
DX: N60.02 Solitary cyst of left breast (principal); N60.22 Fibroadenosis of left breast
CPT/HCPCS: 19120; 93005; 85025; 80048; 36415 ×2; 84132; 88307; 71046; 19281; J2704; J2710; J2001; J2250 ×2; J3010 ×2; J1100; J2405; J7120; J0690

== ENCOUNTER 2024-06-09 07:04 | Inpatient (IN) | payer OTHER ==
--- OUTSIDE RECORDS SUMMARY | 2024-06-09 07:07 | XMS REPORT | Clinical Summary ---
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
[2024-06-09] MEDS ORDERED: NA CHLORIDE 0.9% 1,000 ML ONE ×2 (07:36→14:27)
[2024-06-09] MEDS ORDERED: MORPHINE 4 MG/ML SYR ONE (07:36)
[2024-06-09] MEDS ORDERED: ONDANSETRON 4 MG/2 ML VIAL ONE (07:37)
[2024-06-09 07:53] LABS: Absolute Basophils 0.1 K/uL (0-0.5); Absolute Lymphocytes (CBC) 0.8 K/uL (0.7-4.9); Absolute Monocytes 0.9 K/uL (0.1-1.3); Absolute Neutrophil 13.1 K/uL (1.8-8.0); Basophils % 0.5 % (0-1.3); Hematocrit 37.5 % (36.0-45.0); Hemoglobin 12.8 g/dL (12.0-15.0); Lymphocytes % 5.6 % (15.3-44.8); MCH 30.5 pg (27.0-35.0); MCHC 34.1 g/dL (32.0-36.0); MCV 89.5 fL (80-100); MPV 8.4 fL (7.6-11.3); Monocytes % 6.1 % (3.3-12.3); Neutrophils % 87.8 % (41.7-73.7); Platelets 280 thou/uL (152-406); RBC Red Blood Cell Count 4.19 M/uL (3.86-4.86); Red Cell Distribution Width 13.5 % (12.1-15.2)
--- NOTE | 2024-06-09 07:55 | RAD REPORT ---
EXAM: Right upper quadrant ultrasound. CLINICAL HISTORY: Abdominal pain COMPARISON: None FINDINGS: A gallstone is not seen. Gallbladder wall not thickened. Biliary tree normal caliber IMPRESSION: No significant abnormalities displayed
[2024-06-09 07:57] LABS: Urine Bacteria <20 /HPF (<20); Urine Bilirubin NEGATIVE (Negative); Urine Blood 1+ (Negative); Urine Clarity Extremely Turbid (Clear); Urine Color Yellow (Yellow); Urine Culture Reflex Order REFLEXED; Urine Glucose NEGATIVE (Negative); Urine Ketones NEGATIVE (Negative); Urine Microscopic Reflex YN ORDER UMIC; Urine Mucus Slight /HPF (None Seen); Urine Nitrite 1+ (Negative); Urine Protein 1+ (Negative); Urine Urobilinogen Normal (Normal); Urine WBC >50 /HPF (<5); Urine WBC Clump Occasional /HPF (None Seen)
[2024-06-09 08:09] LABS: Albumin 3.1 g/dL (3.4-5.0); Albumin/Globulin Ratio 0.8 (1.1-1.8); Anion Gap 10.1 mEq/L (5.0-15.0); Bilirubin Total 0.5 mg/dL (0.2-1.0); Globulin 4.1 g/dL (2.3-3.5); Potassium 3.1 mEq/L (3.5-5.1); Protein, Total 7.2 g/dL (6.4-8.2)
--- NOTE | 2024-06-09 08:10 | RAD REPORT ---
EXAMINATION: CT ABDOMEN AND PELVIS WITHOUT CONTRAST CLINICAL INDICATION: Abdominal pain. Right flank pain TECHNIQUE: CT abdomen and pelvis was performed, as per department protocol. IV contrast and oral was not administered.Axial, sagittal and coronal reconstructions were obtained. One or more of the following dose reduction techniques were used: Automated exposure control, adjustment of the mA and/o r kV according to the patient size, and/or iterative reconstruction. Unless otherwise specified, incidental findings do not require dedicated imaging follow-up. [id number]. COMPARISON: 2018 FINDINGS: The lack of intravenous and oral contrast limits evaluation of solid organs, vessels and bowel. Multiple, bilateral renal calculi. No hydronephrosis. A ureteral access not seen. No bladder calculus . The wall of the renal pelves and ureters appear thickened. Liver, spleen, pancreas and adrenals grossly normal No evidence of diverticulitis. No adnexal mass. Gastric band present. IMPRESSION: Multiple, bilateral renal calculi. No hydronephrosis. The wall of the renal pelves and ureters appear thickened. This can be seen with an ascending urinary tract infection
[2024-06-09] MEDS ORDERED: CEFTRIAXONE 1000 MG/VIAL ONE (08:38)
[2024-06-09] MEDS ORDERED: POTASSIUM CL SA 10 MEQ TAB PO ONE (08:38)
--- NOTE | 2024-06-09 09:37 | ER ---
Nurse's Notes [facility] Name: Gilma Rush Age: 43 yrs Sex: Female : 1980 Arrival Date: 06/09/2024 Time: 07:04 Bed 5 Private MD: Diagnosis: Pyelonephritis acute;Sepsis, unspecified organism Presentation: 06/09 07:27 Chief complaint: Patient states: right sided flank pain since Saturday. Coronavirus iw screen: At this time, the client does not indicate any symptoms associated with coronavirus-19. Ebola Screen: No symptoms or risks identified at this time. 07:27 Method Of Arrival: Ambulatory iw 07:28 Initial Sepsis Screen: Does the patient meet any 2 criteria? HR > 90 bpm. Does the iw patient have a suspected source of infection? No. Patient's initial sepsis screen is negative. Risk Assessment: Do you want to hurt yourself or someone else? Patient reports no desire to harm self or others. 07:28 Acuity: CARRIE 3 iw 07:28 Onset of symptoms was June 06, 2024. iw Historical: - Allergies: 07:28 No Known Allergies; iw - PMHx: 07:28 ADD/ADHD; Anxiety; Depression; Kidney stone; iw - PSHx: 07:28 Appendectomy; section; lap band; Tummy tuck; BBL/lipo; hysterectomy; iw - Immunization history:: Adult Immunizations not up to date. - Infectious Disease History:: Denies. - Social history:: Smoking status: Patient denies any tobacco usage or history of. Screenin:34 [facility] ED Fall Risk Assessment (Adult) History of falling in the last 3 months, ko1 including since admission No falls in past 3 months (0 pts) Confusion or Disorientation No (0 pts) Intoxicated or Sedated No (0 pts) Impaired Gait No (0 pts) Mobility Assist Device Used No (0 pt) Altered Elimination No (0 pt) Score/Fall Risk Level 0 - 2 = Low Risk Oriented to surroundings, Maintained a safe environment, Educated pt \T\ family on fall prevention, incl call for assistance when getting out of bed, Assessed \T\ reinforced patient's understanding of fall precautions, Hourly rounding (assess needs \T\ fall precautionary measures) done. Abuse screen: Denies threats or abuse. Denies injuries from another. Nutritional screening: No deficits noted. Tuberculosis screening: No symptoms or risk factors identified. Assessment: 07:49 General: Appears uncomfortable, Behavior is calm, cooperative, appropriate for age. ko1 Pain: Complains of pain in abdomen. Neuro: No deficits noted. Cardiovascular: No deficits noted. Respiratory: No deficits noted. GI: Bowel sounds present X 4 quads. Abd is soft X 4 quads. : No deficits noted. No signs and/or symptoms were reported regarding the genitourinary system. EENT: No deficits noted. No signs and/or symptoms were reported regarding the EENT system. Derm: No deficits noted. No signs and/or symptoms reported regarding the dermatologic system. Musculoskeletal: No deficits noted. No signs and/or symptoms reported regarding the musculoskeletal system. Vital Signs: 07:27 BP 125 / 74; Pulse 125; Resp 18; Temp 99.3; Pulse Ox 100% on R/A; Weight 64.86 kg; iw Height 5 ft. 3 in. ; Pain 8/10; 08:37 BP 105 / 69; Pulse 118; Resp 18; Pulse Ox 99% on R/A; ld1 10:00 BP 110 / 75; Pulse 114; Resp 15; Pulse Ox 99% ; ko1 11:00 BP 116 / 71; Pulse 119; Resp 16; Pulse Ox 99% ; ko1 12:00 BP 119 / 80; Pulse 121; Resp 19; Pulse Ox 100% ; ko1 13:00 BP 111 / 72; Pulse 124; Resp 18; Pulse Ox 99% ; ko1 14:56 BP 125 / 84; Pulse 124; Resp 17; Pulse Ox 98% on R/A; ko1 07:27 Body Mass Index 25.33 (64.86 kg, 160.02 cm) iw 07:27 Pain Scale: Adult iw ED Course: 07:11 Patient arrived in ED. gm2 07:17 Ricki Mortensen DO is Attending Physician. ms3 07:18 Cat Pascal, ANA is Primary Nurse. ko1 07:28 Triage completed. iw 07:29 Arm band placed on. iw 07:34 Patient has correct armband on for positive identification. Bed in low position. Call ko1 light in reach. Side rails up X 1. Provided Education on: labs. Pulse ox on. NIBP on. Door closed. Noise minimized. Lights dimmed. Warm blanket given. Pillow given. 07:34 Urinalysis w/ reflexes Sent. ko1 07:34 Urine collected: clean catch specimen, cloudy. ko1 07:40 Initial lab(s) drawn, by me, sent to lab. Inserted saline lock: 22 gauge in right ko1 antecubital area, using aseptic technique. Blood collected. Flushed with 10 mL NS. 07:48 US Abdomen Limited In Process Unspecified. EDMS 07:49 CBC with Diff Sent. ko1 07:49 CMP Sent. ko1 07:49 Urinalysis w/ reflexes Sent. ko1 07:49 No provider procedures requiring assistance completed. ko1 07:56 CT Abd/Pelvis - Without Contrast In Process Unspecified. EDMS 08:00 Assisted to bathroom. ko1 08:58 Blood Culture Adult (2) Sent. ko1 08:59 Lactate w/ 2H reflex if indic. Sent. ko1 08:59 Protime (+inr) Sent. ko1 08:59 Ptt, Activated Sent. ko1 08:59 Urine Culture Sent. ko1 09:36 Johnson Oliva is Hospitalizing Provider. ms3 14:55 Patient admitted, IV remains in place. ko1 Administered Medications: 07:49 Drug: morphine IVP or IV 4 mg IVP once over 4 mins Route: IVP; Infused Over: 4 mins; ko1 Site: right antecubital; 08:04 Follow up: Response: No adverse reaction ko1 07:49 Drug: NS 0.9% IV 1000 ml IV at 1000 ml once; to be given as a bolus over 60 minutes ko1 Route: IV; Rate: 1000 ml; Site: right antecubital; 09:59 Follow up: Response: No adverse reaction; IV Status: Completed infusion; IV Intake: ko1 1000ml 08:50 Drug: Potassium Chloride PO Liquid 40 mEq PO once Route: PO; ko1 09:20 Follow up: Response: No adverse reaction ko1 09:02 Drug: Rocephin IV 1 grams IV at calculated rate once; Given slow IV push per pharmacy ko1 instructions Route: IV; Rate: calculated rate; Site: right antecubital; 09:20 Follow up: Response: No adverse reaction; IV Status: Completed infusion; IV Intake: [id number] Medication: 07:49 VIS not applicable for this client. ko1 Intake: 09:20 IV: 10ml; Total: 10ml. ko1 09:59 IV: 1000ml; Total: 1010ml. ko1 Outcome: 09:37 Decision to Hospitalize by Provider. ms3 14:55 Admitted to Med/surg accompanied by tech, via wheelchair, room 229, with chart, ko1 14:55 Condition: stable 14:55 Instructed on the need for admit, 15:35 Patient left the ED. cm10 Signatures: Dispatcher [employer] EDKailee Ivan RN RN iw Ricki Mortensen, DO DO ms3 Anay Mortensen RN RN ld1 Cat Pascal RN RN ko1 Emily Painter RN RN cm10 Alisha Whitney 2 Corrections: (The following items were deleted from the chart) 07:29 07:27 BP 125 / 74; Pulse 125bpm; Resp 18bpm; Pulse Ox 100% RA; Temp 99.3F; Pain 8/10, iw Adult; iw
--- NOTE | 2024-06-09 09:38 | EDPHYS ---
Physician Documentation [facility] Name: Gilma Rush Age: 43 yrs Sex: Female : 1980 Arrival Date: 06/09/2024 Time: 07:04 Bed 5 Private MD: ED Physician Ricki Mortensen HPI: 06/09 07:51 This 43 yrs old Female presents to ER via Ambulatory with complaints of ms3 Abdominal Pain, Low Back Pain. 07:51 43-year-old female with past medical history of ADD/ADHD, anxiety, depression, kidney ms3 stones presents emergency department for right flank pain that she rates an 8/10 that began on Saturday. Patient states the pain is worse with breathing and walking. Patient states she is taken tramadol without relief. Patient endorses chills and urinary frequency. Patient denies nausea, vomiting, diarrhea.. Historical: - Allergies: 07:28 No Known Allergies; iw - PMHx: 07:28 ADD/ADHD; Anxiety; Depression; Kidney stone; iw - PSHx: 07:28 Appendectomy; section; lap band; Tummy tuck; BBL/lipo; hysterectomy; iw - Immunization history:: Adult Immunizations not up to date. - Infectious Disease History:: Denies. - Social history:: Smoking status: Patient denies any tobacco usage or history of. ROS: 07:51 Constitutional: Negative for fever, and chills. Cardiovascular: Negative for chest ms3 pain, and palpitations. Respiratory: Negative for shortness of breath, cough, wheezing, and pleuritic chest pain, MS/Extremity: Negative for injury and deformity, Skin: Negative for injury, rash, and discoloration, 07:51 Abdomen/GI: Positive for abdominal pain, Negative for nausea, vomiting, and diarrhea, Exam: 07:51 Constitutional: This is a well developed, well nourished patient who is awake, alert, ms3 and in no acute distress. Cardiovascular: Regular rate and rhythm with a normal S1 and S2. No gallops, murmurs, or rubs. Normal PMI, no JVD. No pulse deficits. Respiratory: Lungs have equal breath sounds bilaterally, clear to auscultation and percussion. No rales, rhonchi or wheezes noted. No increased work of breathing, no retractions or nasal flaring. MS/ Extremity: Pulses equal, no cyanosis. Neurovascular intact. Full, normal range of motion. 07:51 Abdomen/GI: Inspection: abdomen appears normal, Bowel sounds: normal, Palpation: moderate abdominal tenderness, in the right upper quadrant, 07:51 Back: ROM is normal, normal spinal alignment noted, CVA tenderness, that is moderate, is noted on the right, vertebral tenderness, is not appreciated, muscle spasm, is not present, 09:37 ECG was reviewed by the Attending Physician. ms3 Vital Signs: 07:27 BP 125 / 74; Pulse 125; Resp 18; Temp 99.3; Pulse Ox 100% on R/A; Weight 64.86 kg; iw Height 5 ft. 3 in. ; Pain 8/10; 08:37 BP 105 / 69; Pulse 118; Resp 18; Pulse Ox 99% on R/A; ld1 10:00 BP 110 / 75; Pulse 114; Resp 15; Pulse Ox 99% ; ko1 11:00 BP 116 / 71; Pulse 119; Resp 16; Pulse Ox 99% ; ko1 12:00 BP 119 / 80; Pulse 121; Resp 19; Pulse Ox 100% ; ko1 13:00 BP 111 / 72; Pulse 124; Resp 18; Pulse Ox 99% ; ko1 14:56 BP 125 / 84; Pulse 124; Resp 17; Pulse Ox 98% on R/A; ko1 07:27 Body Mass Index 25.33 (64.86 kg, 160.02 cm) iw 07:27 Pain Scale: Adult iw MDM: 07:24 Medical Screening Exam initiated ms3 07:51 Differential diagnosis: UTI, Cholecystitis vs Nephrolithiasis. ms3 10:27 Data reviewed: vital signs, nurses notes, lab test result(s), EKG, radiologic studies, ms3 and as a result, I will admit patient. Consideration of Admission/Observation Patient was admitted/placed on observation. Management of patient was discussed with the following: Hospitalist: Dr Oliva. I considered the following discharge prescriptions or medication management in the emergency department Medications were administered in the Emergency Department. See MAR. Counseling: I had a detailed discussion with the patient and/or guardian regarding the historical points, exam findings, and any diagnostic results supporting the discharge/admit diagnosis, lab results, radiology results, the need for further work-up and treatment in the hospital. ED course: Discussed case with Hospitalist group and they accept patient. Discussed need for admission with patient. She understands/ agrees with plan.. 06/09 07:18 Order name: CBC with Diff; Complete Time: 10:10 ms3 06/09 07:18 Order name: CMP; Complete Time: 08:24 ms3 06/09 07:18 Order name: Urinalysis w/ reflexes; Complete Time: 08:00 ms3 06/09 08:00 Order name: Urine Culture EDMS 06/09 08:02 Order name: Blood Culture Adult (2) ms3 06/09 08:02 Order name: Lactate w/ 2H reflex if indic.; Complete Time: 09:33 ms3 06/09 08:02 Order name: Protime (+inr) ms3 06/09 08:02 Order name: Ptt, Activated ms3 06/09 09:55 Order name: CBC Smear Scan; Complete Time: 10:10 EDMS 06/09 12:56 Order name: CBC with Automated Diff EDMS 06/09 12:56 Order name: CBC with Automated Diff EDMS 06/09 12:56 Order name: Comprehensive Metabolic Panel EDMS 06/09 12:57 Order name: Comprehensive Metabolic Panel EDMS 06/09 12:57 Order name: Magnesium EDMS 06/09 12:57 Order name: Magnesium EDMS 06/09 12:57 Order name: Phosphorus EDMS 06/09 12:57 Order name: Phosphorus EDMS 06/09 07:24 Order name: CT Abd/Pelvis - Without Contrast; Complete Time: 08:24 ms3 06/09 07:24 Order name: US Abdomen Limited; Complete Time: 08:00 ms3 06/09 07:18 Order name: IV Saline Lock; Complete Time: 07:49 ms3 06/09 07:18 Order name: Labs collected and sent; Complete Time: 07:49 ms3 06/09 08:02 Order name: Accucheck; Complete Time: 08:58 ms3 06/09 08:02 Order name: Cardiac monitoring; Complete Time: 08:35 ms3 06/09 08:02 Order name: EKG - Nurse/Tech; Complete Time: 08:58 ms3 06/09 08:02 Order name: IV Saline Lock - Large Bore; Complete Time: 08:35 ms3 06/09 08:02 Order name: O2 Per Protocol; Complete Time: 08:35 ms3 06/09 08:02 Order name: O2 Sat Monitoring; Complete Time: 08:35 ms3 06/09 08:02 Order name: Vital Signs; Complete Time: 08:35 ms3 06/09 09:12 Order name: Labs - recollect needed: recollect blue top, fill to line; Complete Time: bd 09:37 EC:37 Rate is 117 beats/min. Rhythm is regular. QRS [place] is Normal. [place] interval is normal. ms3 QRS interval is normal. Clinical impression: Sinus tachycardia. Interpreted by me. Reviewed by me. Administered Medications: 07:49 Drug: morphine IVP or IV 4 mg IVP once over 4 mins Route: IVP; Infused Over: 4 mins; ko1 Site: right antecubital; 08:04 Follow up: Response: No adverse reaction ko1 07:49 Drug: NS 0.9% IV 1000 ml IV at 1000 ml once; to be given as a bolus over 60 minutes ko1 Route: IV; Rate: 1000 ml; Site: right antecubital; 09:59 Follow up: Response: No adverse reaction; IV Status: Completed infusion; IV Intake: ko1 1000ml 08:50 Drug: Potassium Chloride PO Liquid 40 mEq PO once Route: PO; ko1 09:20 Follow up: Response: No adverse reaction ko1 09:02 Drug: Rocephin IV 1 grams IV at calculated rate once; Given slow IV push per pharmacy ko1 instructions Route: IV; Rate: calculated rate; Site: right antecubital; 09:20 Follow up: Response: No adverse reaction; IV Status: Completed infusion; IV Intake: [id number] Disposition Summary: 06/09/24 09:37 Hospitalization Ordered Notes: Hospitalization Status: Inpatient Admission ms3 Provider: Johnson Oliva ms3 Location: Telemetry/MedSurg (Inpatient) ms3 Condition: Stable ms3 Problem: new ms3 Symptoms: are unchanged ms3 Bed/Room Type: Standard ms3 Room Assignment: 229(06/09/24 14:39) bd Diagnosis - Pyelonephritis acute ms3 - Sepsis, unspecified organism ms3 Forms: - Medication Reconciliation Form ms3 - SBAR form ms3 - Leadership Thank You Letter ms3 Signatures: Dispatcher [employer] Blaire Melton Irene, RN Juancarlos Wallace MD MD rn Sims, Marcus, DO DO ms3 Cat Pascal, ANA RN ko1 Corrections: (The following items were deleted from the chart) 07:18 07:18 CBC+H.LAB.BRZ ordered. EDMS EDMS 07:18 07:18 COMPREHENSIVE METABOLIC PANEL+C.LAB.BRZ ordered. EDMS EDMS 07:18 07:18 Urinalysis+U.LAB.BRZ ordered. EDMS EDMS 07:33 07:18 Test, Urine+UC.LAB.BRZ ordered. EDMS EDMS 14:39 09:37 ms3 bd
[2024-06-09 09:54] LABS: Blood Morphology Comment NOT SEEN (NOT SEEN); Platelet Estimate ADEQ; White Blood Cell Scan OK (OK)
--- NOTE | 2024-06-09 12:44 | P.HP ---
Certification for Inpatient Patient admitted to: Inpatient With expected LOS: >2 Midnights Patient will require the following post-hospital care: None Practitioner: I am a practitioner with admitting privileges, knowledge of patient current condition, hospital course, and medical plan of care. Services: Services provided to patient in accordance with Admission requirements found in Title 42 Section 412.3 of the Code of Federal Regulations <Liz Lawsonlen - Last Filed: 06/09/24 12:56> Patient History Date of Service: 06/09/24 Reason for admission: Pyelonephritis, hypokalemia, History of Present Illness: Ms. Rush is a 43-year-old female with a past medical history of renal calculi, anxiety/depression, and multiple abdominal surgeries who presents to the emergency department after a 1 week history of right flank and abdominal pain. She states she has a long history of renal calculi, but has never had a urinary tract infection. She denies fever or vomiting but states she was doubled over in pain over the weekend and thought maybe her gallbladder was causing her pain as it was difficult to take a deep breath. Upon evaluation in the emergency room department, she was found to have CT evidence of pyelonephritis with some leukocytosis. "Multiple, bilateral renal calculi. No hydronephrosis. The wall of the renal pelves and ureters appear thickened. This can be seen with an ascending urinary tract infection." She will be admitted to the hospital for IV hydration and antibiotics while awaiting urine culture sensitivities. - Past Medical/Surgical History Has patient received pneumonia vaccine in the past: No Diabetic: No -: Renal calculi -: multiple episodes of lipo 1998, 2004, 2018 -: appendectomy -: lap band 2006 -: BBL 2018 -: C/S 2003 -: [facility] 2021 Psychosocial/ Personal History: Living between her Parents and her Boyfriend's homes at this time - Family History Mother -: Kidney disease - Social History Smoking Status: Unknown if ever smoked Alcohol use: Yes CD- Drugs: No Caffeine use: Yes Place of Residence: Home <Liz Lawsonlen - Last Filed: 06/09/24 12:56> Date of Service: 06/09/24 <IVET Oliva - Last Filed: 06/09/24 16:19> Allergies No Known Allergies Allergy (Uncoded 09/17/22 09:03) Unknown Home Medications: ALPRAZolam [Xanax] 1 mg PO BEDTIME PRN 09/13/22 Paroxetine HCl [Paxil] 40 mg PO BEDTIME 09/13/22 Zolpidem Tartrate [Ambien] 10 mg PO BEDTIME PRN PRN 09/13/22 buPROPion HCL [Wellbutrin Xl] 300 mg PO BEDTIME 09/13/22 Review of Systems 10-point ROS is otherwise unremarkable General: Malaise Eyes: Unremarkable ENT: Unremarkable Respiratory: Pleuritic Pain Cardiovascular: Unremarkable Gastrointestinal: Nausea Genitourinary: Frequency Musculoskeletal: Unremarkable Integumentary: Unremarkable Neurological: Unremarkable Lymphatics: Unremarkable <Lawson,Liz Pacheco - Last Filed: 06/09/24 12:56> Physical Examination - Vital Signs Temperature: 99.3 F Blood Pressure: 105/69 Pulse: 118 Respirations: 18 Pulse Ox (%): 99 - Physical Exam General: Alert, In no apparent distress, Oriented x3 HEENT: Atraumatic, Normocephalic Neck: Supple Respiratory: Clear to auscultation bilaterally, Normal air movement Cardiovascular: Normal pulses, Regular rate/rhythm, Normal S1 S2 Capillary refill: <2 Seconds Gastrointestinal: Soft and benign, Other (right flank pain) Musculoskeletal: No swelling Integumentary: No rashes Neurological: Normal gait, Normal speech, Normal tone, Normal affect Lymphatics: No axilla or inguinal lymphadenopathy External genitalia: Deferred Rectal: Deferred - Studies Laboratory Data (last 24 hrs) 06/09/24 06/09/24 07:40 07:40 WBC 14.90 H Hgb 12.8 Hct 37.5 Plt Count 280 Sodium 133 L Potassium 3.1 L BUN 7 Creatinine 1.04 H Glucose 101 Total Bilirubin 0.5 AST 13 L ALT 15 Alkaline Phosphatase 106 <Lawson,Liz Pacheco - Last Filed: 06/09/24 12:56> - Studies Laboratory Data (last 24 hrs) 06/09/24 06/09/24 07:40 07:40 WBC 14.90 H Hgb 12.8 Hct 37.5 Plt Count 280 Sodium 133 L Potassium 3.1 L BUN 7 Creatinine 1.04 H Glucose 101 Total Bilirubin 0.5 AST 13 L ALT 15 Alkaline Phosphatase 106 <IVET Oliva - Last Filed: 06/09/24 16:19> Assessment and Plan - Plan Pyelonephritis Gentle hydration Rocephin 1 g IV piggyback daily Await urine culture (sent from ED) and adjust antibiotics to sensitivities History of renal calculi Magnesium 400 mg p.o. nightly Gentle hydration Hypokalemia P.o. potassium replacement Trend, replete Anxiety/depression Continue home med GI prophylaxis Pepcid IV Discharge Plan: Home Plan to discharge in: 48 Hours - Advance Directives Does patient have a Living Will: No Does patient have a Durable POA for Healthcare: No - Code Status/Comfort Care Code Status Assessed: Yes (full) <Liz Lawson - Last Filed: 06/09/24 12:56> - Plan Symptomatic right nephrolithiasis Possible right pyelonephritis without sepsis. No risk for MDR, pain control with fentanyl, tramadol due to borderline hypotension, empiric antibiotics with ceftriaxone while waiting urine culture identification and sensitivity <IVET Oliva - Last Filed: 06/09/24 16:19>
[2024-06-09] MEDS ORDERED: ACETAMINOPHEN 500 MG TAB PO PRN (12:45)
[2024-06-09] MEDS: NA CHLORIDE 0.9% 1,000 ML IV SCH (13:00)
[2024-06-09] MEDS: POTASSIUM CL SA 10 MEQ TAB PO ONE (13:00)
[2024-06-09] MEDS ORDERED: PROMETHAZINE 25 MG TABLET ONE (14:26)
[2024-06-09] MEDS ORDERED: FENTANYL CITR 100 MCG/2 ML ONE (14:27)
[2024-06-09] MEDS: FENTANYL CITR 100 MCG/2 ML IV PRN (14:34)
[2024-06-09] MEDS: PROMETHAZINE 25 MG TABLET PO PRN (14:35)
[2024-06-09 15:56] VITALS: BMI 25.3
[2024-06-09 17:39] LABS: PT Prothrombin Time 13.6 SECONDS (9.4-12.5); PTT, Activated Partial Thromb 43.1 SECONDS (24.3-36.9); Protime INR 1.3
[2024-06-09 18:19] VITALS: O2SAT 98
[2024-06-09] MEDS: TRAMADOL HCL 50 MG TAB PO PRN (19:57)
[2024-06-09] MEDS: ZOLPIDEM TARTRATE 10 MG TABLET PO PRN (19:57)
[2024-06-09] MEDS: MAGNESIUM OXIDE 400 MG TAB PO SCH (19:58)
[2024-06-10 05:46] LABS: Absolute Lymphocytes (CBC) 1.4 K/uL (0.7-4.9); Absolute Monocytes 1.7 K/uL (0.1-1.3); Absolute Neutrophil 9.3 K/uL (1.8-8.0); Basophils % 0.2 % (0-1.3); Hematocrit 30.1 % (36.0-45.0); Lymphocytes % 11.3 % (15.3-44.8); MCHC 33.3 g/dL (32.0-36.0); MCV 90.1 fL (80-100); MPV 8.5 fL (7.6-11.3); Monocytes % 13.9 % (3.3-12.3); Neutrophils % 74.6 % (41.7-73.7); Platelets 230 thou/uL (152-406); RBC Red Blood Cell Count 3.35 M/uL (3.86-4.86); Red Cell Distribution Width 13.4 % (12.1-15.2)
[2024-06-10 05:59] LABS: Albumin 2.2 g/dL (3.4-5.0); Albumin/Globulin Ratio 0.7 (1.1-1.8); Anion Gap 8.5 mEq/L (5.0-15.0); Bilirubin Total 0.4 mg/dL (0.2-1.0); Globulin 3.2 g/dL (2.3-3.5); Magnesium 2.1 mg/dL (1.6-2.4); Potassium 3.5 mEq/L (3.5-5.1); Protein, Total 5.4 g/dL (6.4-8.2)
[2024-06-10] MEDS: CEFTRIAXONE 1,000 MG in NA CHLORIDE 0.9% 50 ML IVPB SCH (07:33)
[2024-06-10] MEDS: FAMOTIDINE 20 MG/2 ML VIAL IV SCH (07:35)
--- NOTE | 2024-06-10 11:46 | EKG ---
Test Date: 2024-06-09 Test Time: 08:45:46 Office Assistant Receptionist: TRINO MEASUREMENT RESULTS: Intervals: Rate: 117 MN: 138 QRSD: 88 QT: 310 QTc: 432 [place]: P: 72 MN: 138 QRS: 106 T: 98 INTERPRETIVE STATEMENTS: Sinus tachycardia Nonspecific ST and T wave abnormality Abnormal ECG Compared to ECG 09/08/2001 14:09:00 ST (T wave) deviation now present Electronically Signed On 06-10-24 11:44:27 COOK PRESSURE by Celestino Green
--- NOTE | 2024-06-10 11:51 | P.PN ---
Date of Service: 06/10/24 Subjective feeling better, no fever, remains mildly tachycardic Review of Systems 10-point ROS is otherwise unremarkable General: Malaise Eyes: Unremarkable ENT: Unremarkable Respiratory: Pleuritic Pain Cardiovascular: Unremarkable Gastrointestinal: Nausea Genitourinary: Frequency Musculoskeletal: Unremarkable Integumentary: Unremarkable Neurological: Unremarkable Lymphatics: Unremarkable Physical Examination - Vital Signs reviewed - Physical Exam General: Alert, In no apparent distress, Oriented x3 HEENT: Atraumatic, Normocephalic Neck: Supple Respiratory: Clear to auscultation bilaterally, Normal air movement Cardiovascular: Normal pulses, Regular rate/rhythm, Normal S1 S2 Capillary refill: <2 Seconds Gastrointestinal: Soft and benign, pain medications helping breathe easier Musculoskeletal: No swelling Integumentary: No rashes Neurological: Normal gait, Normal speech, Normal tone, Normal affect Lymphatics: No axilla or inguinal lymphadenopathy External genitalia: Deferred Rectal: Deferred Assessment and Plan - Plan Pyelonephritis with gram negative bacteremia Gentle hydration Rocephin 1 g IV piggyback daily - advance abx to Merrem until sensitivities return Await urine culture (4+ gram negative rods) History of renal calculi Magnesium 400 mg p.o. nightly Gentle hydration Hypokalemia P.o. potassium replacement Trend, replete - resolved Anxiety/depression Continue home med GI prophylaxis Pepcid IV Discharge Plan: Home Plan to discharge in: 48 Hours <Liz Lawson - Last Filed: 06/10/24 11:47> Gram-negative bacteremia due to urosepsis secondary to complicated nephrolithiasis Afebrile, hemodynamically stable, leukocytosis trending down, antibiotics upgraded to meropenem until urine culture and sensitivity result is back <IVET Oliva - Last Filed: 06/10/24 15:08>
[2024-06-10] MEDS: NA CHLORIDE 0.9% 1,000 ML IV SCH (13:49)
[2024-06-10] MEDS: Meropenem 1,000 MG in NA CHLORIDE 0.9% 100 ML IV SCH (16:11)
[2024-06-10] MEDS ORDERED: Meropenem 1,000 MG in NA CHLORIDE 0.9% 100 ML IV SCH (21:00)
[2024-06-11 07:56] LABS: Absolute Lymphocytes (CBC) 1.3 K/uL (0.7-4.9); Absolute Neutrophil 5.3 K/uL (1.8-8.0); Basophils % 0.2 % (0-1.3); Eosinophils % 0.2 % (0-4.4); Hematocrit 30.1 % (36.0-45.0); Hemoglobin 10.1 g/dL (12.0-15.0); MCH 30.4 pg (27.0-35.0); MCHC 33.6 g/dL (32.0-36.0); MCV 90.5 fL (80-100); MPV 8.5 fL (7.6-11.3); Monocytes % 13.6 % (3.3-12.3); Platelets 241 thou/uL (152-406); RBC Red Blood Cell Count 3.32 M/uL (3.86-4.86); Red Cell Distribution Width 13.6 % (12.1-15.2)
[2024-06-11 08:59] LABS: Anion Gap 10.4 mEq/L (5.0-15.0); Potassium 3.4 mEq/L (3.5-5.1)
--- NOTE | 2024-06-11 11:03 | P.PN ---
Date of Service: 06/11/24 Subjective feeling better, no fever, no tachycardia Review of Systems 10-point ROS is otherwise unremarkable General: Malaise Eyes: Unremarkable ENT: Unremarkable Respiratory: Pleuritic Pain improved Cardiovascular: Unremarkable Gastrointestinal: Unremarkable Genitourinary: Frequency Musculoskeletal: Unremarkable Integumentary: Unremarkable Neurological: Unremarkable Lymphatics: Unremarkable Physical Examination - Vital Signs reviewed - Physical Exam General: Alert, In no apparent distress, Oriented x3 HEENT: Atraumatic, Normocephalic Neck: Supple Respiratory: Clear to auscultation bilaterally, Normal air movement Cardiovascular: Normal pulses, Regular rate/rhythm, Normal S1 S2 Capillary refill: <2 Seconds Gastrointestinal: Soft and benign Musculoskeletal: No swelling Integumentary: No rashes Neurological: Normal gait, Normal speech, Normal tone, Normal affect Lymphatics: No axilla or inguinal lymphadenopathy External genitalia: Deferred Rectal: Deferred Assessment and Plan - Plan Pyelonephritis with gram negative bacteremia Gentle hydration Rocephin 1 g IV piggyback daily - advance abx to Merrem until sensitivities return (06/10/24) Await urine culture (4+ gram negative rods) History of renal calculi Magnesium 400 mg p.o. nightly Gentle hydration Hypokalemia P.o. potassium replacement Trend, replete - resolved Anxiety/depression Continue home med Improving, awaiting sensitivities. Probable discharge tomorrow on po abx. GI prophylaxis Pepcid IV Discharge Plan: Home Plan to discharge in: 24 Hours <Liz Lawson - Last Filed: 06/11/24 11:01> Final report of blood and urine culture reviewed, E. coli ESBL however sensitive to quinolone, I will change her antibiotics from IV meropenem to Levaquin 750 mg daily and monitor her overnight and follow-up on repeat blood culture. Planning on 7-day course of antibiotics for uncomplicated E. coli bacteremia secondary to urosepsis. <IVET Oliva - Last Filed: 06/11/24 13:59>
[2024-06-11] MEDS: levoFLOXacin 750 MG TAB PO SCH (14:20)
[2024-06-12 12:53] VITALS: TEMP 98
[2024-06-12 12:55] VITALS: BP 103/73
--- NOTE | 2024-06-12 13:16 | P.DS ---
Admission Date: 06/09/24 Discharge Date: 06/12/24 Reason for Admission: Pyelonephritis, hypokalemia, Brief History of Present Illness: Ms. Rush is a 43-year-old female with a past medical history of renal calculi, anxiety/depression, and multiple abdominal surgeries who presents to the emergency department after a 1 week history of right flank and abdominal pain. She states she has a long history of renal calculi, but has never had a urinary tract infection. She denies fever or vomiting but states she was doubled over in pain over the weekend and thought maybe her gallbladder was causing her pain as it was difficult to take a deep breath. Upon evaluation in the emergency room department, she was found to have CT evidence of pyelonephritis with some leukocytosis. "Multiple, bilateral renal calculi. No hydronephrosis. The wall of the renal pelves and ureters appear thickened. This can be seen with an ascending urinary tract infection." She will be admitted to the hospital for IV hydration and antibiotics while awaiting urine culture sensitivities. Hospital Course: Ms. Rush' hospitalization was prolonged initially secondary to gram- negative bacteremia as a result of complicated pyelonephritis with ESBL E. coli urine, results of sensitivities however show bacteria sensitive to Levaquin. She is tolerating p.o. Levaquin, her pain is controlled, and she is well- hydrated. She is stable for discharge for a 14-day total course of Levaquin. She understands that she needs to follow-up with urology, Dr. Burns. <Liz Lawson - Last Filed: 06/12/24 13:18> Admission Date: 06/09/24 Discharge Date: 06/12/24 Hospital Course: Discharge diagnosis ESBL E. coli bacteremia with sepsis secondary to #2 Complicated right acute pyelonephritis with nonobstructing nephrolithiasis <IVET Oliva - Last Filed: 06/12/24 16:42> Disposition: ROUTINE DISCHARGE Discharge Condition: GOOD Vital Signs/Physical Exam: Temp Pulse Resp BP Pulse Ox 98.0 F 74 17 103/73 98 06/12/24 12:00 06/12/24 12:00 06/12/24 12:00 06/12/24 12:00 06/12/24 12:00 General: Alert, In no apparent distress, Oriented x3 HEENT: Atraumatic, Normocephalic Neck: Supple Respiratory: Clear to auscultation bilaterally, Normal air movement Cardiovascular: Normal pulses, Regular rate/rhythm, Normal S1 S2 Capillary refill: <2 Seconds Gastrointestinal: Normal bowel sounds, Soft and benign Musculoskeletal: No clubbing, No swelling Integumentary: No rashes, No breakdown Lymphatics: No axilla or inguinal lymphadenopathy External genitalia: Deferred Rectal: Deferred Laboratory Data at Discharge: WBC 7.60 thou/uL (4.3-10.9) 06/11/24 07:35 Hgb 10.1 g/dL (12.0-15.0) L 06/11/24 07:35 Hct 30.1 % (36.0-45.0) L 06/11/24 07:35 Plt Count 241 thou/uL (152-406) 06/11/24 07:35 PT 13.6 SECONDS (9.4-12.5) H 06/09/24 17:23 INR 1.30 06/09/24 17:23 APTT 43.1 SECONDS (24.3-36.9) H 06/09/24 17:23 Sodium 141 mEq/L (136-145) D 06/11/24 07:35 Potassium 3.4 mEq/L (3.5-5.1) L 06/11/24 07:35 BUN 6 mg/dL (7-18) L 06/11/24 07:35 Creatinine 0.63 mg/dL (0.55-1.02) 06/11/24 07:35 Glucose 86 mg/dL (74-106) 06/11/24 07:35 Phosphorus 2.0 mg/dL (2.5-4.9) L 06/10/24 05:15 Magnesium 2.1 mg/dL (1.6-2.4) 06/10/24 05:15 Total Bilirubin 0.4 mg/dL (0.2-1.0) 06/10/24 05:15 AST 19 U/L (15-37) 06/10/24 05:15 ALT 20 U/L (13-56) 06/10/24 05:15 Alkaline Phosphatase 99 U/L (45-117) 06/10/24 05:15 <Lawson,Liz Pacheco - Last Filed: 06/12/24 13:18> Vital Signs/Physical Exam: Temp Pulse Resp BP Pulse Ox 98.0 F 74 17 103/73 98 06/12/24 12:00 06/12/24 12:00 06/12/24 12:00 06/12/24 12:00 06/12/24 12:00 Laboratory Data at Discharge: WBC 7.60 thou/uL (4.3-10.9) 06/11/24 07:35 Hgb 10.1 g/dL (12.0-15.0) L 06/11/24 07:35 Hct 30.1 % (36.0-45.0) L 06/11/24 07:35 Plt Count 241 thou/uL (152-406) 06/11/24 07:35 PT 13.6 SECONDS (9.4-12.5) H 06/09/24 17:23 INR 1.30 06/09/24 17:23 APTT 43.1 SECONDS (24.3-36.9) H 06/09/24 17:23 Sodium 141 mEq/L (136-145) D 06/11/24 07:35 Potassium 3.4 mEq/L (3.5-5.1) L 06/11/24 07:35 BUN 6 mg/dL (7-18) L 06/11/24 07:35 Creatinine 0.63 mg/dL (0.55-1.02) 06/11/24 07:35 Glucose 86 mg/dL (74-106) 06/11/24 07:35 Phosphorus 2.0 mg/dL (2.5-4.9) L 06/10/24 05:15 Magnesium 2.1 mg/dL (1.6-2.4) 06/10/24 05:15 Total Bilirubin 0.4 mg/dL (0.2-1.0) 06/10/24 05:15 AST 19 U/L (15-37) 06/10/24 05:15 ALT 20 U/L (13-56) 06/10/24 05:15 Alkaline Phosphatase 99 U/L (45-117) 06/10/24 05:15 <IVET Oliva Ran - Last Filed: 06/12/24 16:42> <Lawson,Liz Pacheco - Last Filed: 06/12/24 13:18> <Oliva,IL Ran - Last Filed: 06/12/24 16:42> Home Medications: ALPRAZolam [Xanax] 1 mg PO BEDTIME PRN 09/13/22 Paroxetine HCl [Paxil] 40 mg PO BEDTIME 09/13/22 Zolpidem Tartrate [Ambien] 10 mg PO BEDTIME PRN PRN 09/13/22 buPROPion HCL [Wellbutrin Xl] 300 mg PO BEDTIME 09/13/22 Magnesium Carb,Citrate,Oxide [Magnesium Complex] 300 mg PO BEDTIME #1 bottle 06/12/24 Promethazine Tab [Phenergan*] 25 mg PO Q6HP PRN #18 tab 06/12/24 levoFLOXacin [Levaquin*] 750 mg PO DAILY #13 tab 06/12/24 traMADol HCL [Ultram*] 100 mg PO TID PRN #20 tab 06/12/24 New Medications: Promethazine Tab [Phenergan*] 25 mg PO Q6HP PRN #18 tab PRN Reason: Nausea / Vomiting levoFLOXacin [Levaquin*] 750 mg PO DAILY #13 tab Magnesium Carb,Citrate,Oxide [Magnesium Complex] 300 mg PO BEDTIME #1 bottle traMADol HCL [Ultram*] 100 mg PO TID PRN #20 tab PRN Reason: Pain Physician Discharge Instructions: Ms. Rush is a 43-year-old female with a past medical history of renal calculi, anxiety/depression, and multiple abdominal surgeries who presents to the emergency department after a 1 week history of right flank and abdominal pain. She states she has a long history of renal calculi, but has never had a urinary tract infection. She denies fever or vomiting but states she was doubled over in pain over the weekend and thought maybe her gallbladder was causing her pain as it was difficult to take a deep breath. Upon evaluation in the emergency room department, she was found to have CT evidence of pyelon ephritis with some leukocytosis. "Multiple, bilateral renal calculi. No hydronephrosis. The wall of the renal pelves and ureters appear thickened. This can be seen with an ascending urinary tract infection." She will be admitted to the hospital for IV hydration and antibiotics while awaiting urine culture sensitivities. Hospital Course: Ms. Rush' hospitalization was prolonged initially secondary to gram- negative bacteremia, results of sensitivities however show bacteria sensitive to Levaquin. She is tolerating p.o. Levaquin, her pain is controlled, and she is well-hydrated. She is stable for discharge for a 14-day total course of Levaquin. She understands that she needs to follow-up with urology, Dr. Burns. Followup: Benny Zheng MD [Primary Care Provider] - 1-2 Weeks Champ Burns [ACTIVE - CAN ADMIT] - 1-2 Weeks
== END 2024-06-12 13:51 | disposition home or self-care (01) | DRG 872 ==
LOC: ER 07:04 → ERHOLD 12:45 → 2ND 15:08
PROVIDERS: ADMIT Internal Medicine; ATTEND Internal Medicine
DX: A41.51 Sepsis due to Escherichia coli [E. coli] (principal); N10 Acute pyelonephritis; E87.6 Hypokalemia; F32.A Depression, unspecified; F41.9 Anxiety disorder, unspecified; F90.9 Attention-deficit hyperactivity disorder, unspecified type; R35.0 Frequency of micturition; Z90.49 Acquired absence of other specified parts of digestive tract; Z90.710 Acquired absence of both cervix and uterus; Z79.899 Other long term (current) drug therapy
CPT/HCPCS: 36415; 74176; 76705; 80048; 80053; 81001; 83605; 83735; 84100; 85025; 85610; 85730; 87040; 87077; 87086; 87088; 87186; 87205; 93005; 96361; 96365; 96375; 99285; J0696; J2185; J2405; J3010; J7030; Q0169

== ENCOUNTER 2025-01-24 19:47 | Emergency (ER) | payer OTHER ==
--- OUTSIDE RECORDS SUMMARY | 2025-01-24 19:50 | XMS REPORT | Clinical Summary ---
Author Name Unknown Organization [facility] Address [address] [place] [address] Care Team Providers Care Field Application Engineer Name Role Phone Wendy Geiger MD Unavailable [phone] Social History Tobacco Use Types Packs/Day Years Used Date Smoking Tobacco: Never Assessed Comments Unknown Sex and Gender Information Value Date Recorded Sex Assigned at Not on file Legal Sex Female 12:47 PM CDT Gender Identity Not on file Sexual Orientation Not on file Plan of Treatment Not on file Insurance [employer] Care Teams Field Application Engineer Relationship Specialty Start Date End Date Wendy Geiger MD [email or web address] PCP - External Referring Obstetrics/Gynecology 07/11/22
[2025-01-24] MEDS ORDERED: ONDANSETRON 4 MG/2 ML VIAL ONE (20:03)
[2025-01-24] MEDS ORDERED: MORPHINE 4 MG/ML SYR ONE ×2 (20:04→21:27)
[2025-01-24] MEDS ORDERED: NA CHLORIDE 0.9% 1,000 ML ONE (20:04)
[2025-01-24 20:30] LABS: Sqamous Epithelial <5 /HPF (None Seen); Urine Culture Reflex Order NOT NEEDED; Urine Microscopic Reflex YN ORDER UMIC
[2025-01-24 20:34] LABS: Absolute Lymphocytes (CBC) 2.5 K/uL (0.7-4.9); Hematocrit 40.1 % (36.0-45.0); Hemoglobin 13.6 g/dL (12.0-15.0); MCH 29.4 pg (27.0-35.0); MCHC 33.9 g/dL (32.0-36.0); MCV 86.6 fL (80-100); MPV 8.5 fL (7.6-11.3); Nucleated RBC Absolute Count 0.0 (0-0); Nucleated Red Blood Cells % 0.0 % (0-0); RBC Red Blood Cell Count 4.63 M/uL (3.86-4.86); White Blood Count 10.40 thou/uL (4.3-10.9)
[2025-01-24 20:51] LABS: ALT/SGPT 21.0 U/L (13-56); AST/SGOT 14.0 U/L (15-37); Albumin 3.6 g/dL (3.4-5.0); Albumin/Globulin Ratio 1.0 (1.1-1.8); Alkaline Phosphatase 62.0 U/L (45-117); Anion Gap 8.7 mEq/L (5.0-15.0); BUN Blood Urea Nitrogen 13.0 mg/dL (7-18); Globulin 3.7 g/dL (2.3-3.5); Glucose Level 102.0 mg/dL (74-106); Lipase 435.0 U/L (13-75); Potassium 3.7 mEq/L (3.5-5.1)
[2025-01-24] MEDS ORDERED: KETOROLAC 30 MG/ML INJ ONE (20:59)
--- NOTE | 2025-01-24 22:12 | RAD REPORT ---
EXAMINATION: CT Stone Protocol CLINICAL INDICATION: Female, 44 years old. ABD PAIN TECHNIQUE: CT abdomen and pelvis was performed, without IV contrast, as per department protocol. Axia l, sagittal and coronal reconstructions were obtained. One or more of the following dose reduction techniques were used: Automated exposure control, adjustment of the mA and kV according to the patien t size, and iterative reconstruction. Unless otherwise specified, incidental findings do not require dedicated imaging follow-up. COMPARISON: 06/09/2024 FINDINGS: The lack of intravenous contrast limits the sensitivity of this exam for evaluation of solid visceral organs, vascular structures, and retroperitoneum. LOWER CHEST: The visualized lung bases are clear. LIVER: Normal in size and contour. No focal lesion. BILIARY SYSTEM: No suspicious abnormalities. SPLEEN: Normal size. No focal lesion. PANCREAS: No mass, ductal dilation, or maddie-pancreatic fluid. ADRENALS: Normal; no mass. KIDNEYS AND URETERS: Normal size and contour. Numerous nonobstructing left renal calculi largest chau uring 5 mm and a single right renal nonobstructing calculus measuring 3 mm. Mild left hydronephrosis and hydroureter with distal left ureteral calculus measuring 6 mm. URINARY BLADDER: Decompressed limiting evaluation. GASTROINTESTINAL TRACT: Left band in place. No evidence of bowel obstruction, significant free fluid, free air or abscess. APPENDIX: Appendix not visualized, but no inflammatory changes in region of appendix. LYMPH NODES: No lymphadenopathy. MUSCULOSKELETAL: No acute or suspicious osseous abnormality. ADDITIONAL FINDINGS: None. IMPRESSION: Mild left hydroureteronephrosis. Distal left ureteral 6 mm calculus may be the cause of obstruction. Other bilateral nonobstructing calculi as above. THIS REPORT CONTAINS FINDINGS THAT MAY BE CRITICAL TO PATIENT CARE. The findings were verbally commun icated via telephone to LUI Medel on 01/24/2025 10:09 PM.
[2025-01-24] MEDS ORDERED: TAMSULOSIN 0.4 MG SR CAP ONE (22:15)
--- NOTE | 2025-01-24 22:18 | ER ---
Nurse's Notes [facility] Name: Gilma Rush Age: 44 yrs Sex: Female : 1980 Arrival Date: 01/24/2025 Time: 19:47 Bed 5 Private MD: Diagnosis: Calculus of kidney with calculus of ureter Presentation: 01/24 19:59 Chief complaint: Patient states: sudden onset of left flank pain radiates to LLQ with me1 n/v that started this evening. Pain 8/10 "sharp". Coronavirus screen: Vaccine status: Patient reports receiving the 2nd dose of the covid vaccine. Ebola Screen: No symptoms or risks identified at this time. Initial Sepsis Screen: Does the patient meet any 2 criteria? HR > 90 bpm. Does the patient have a suspected source of infection? No. Patient's initial sepsis screen is negative. Risk Assessment: Do you want to hurt yourself or someone else? Patient reports no desire to harm self or others. Onset of symptoms was January 24, 2025 at 18:30. 19:59 Method Of Arrival: Ambulatory pa1 19:59 Acuity: CARRIE 3 me1 Triage Assessment: 20:00 General: Appears uncomfortable, well groomed, well developed, well nourished, Behavior me1 is cooperative, appropriate for age, anxious, crying. Pain: Complains of pain in left lower quadrant and left flank Pain radiates to left lower quadrant Pain currently is 8 out of 10 on a pain scale. Quality of pain is described as sharp, Pain began suddenly, Is continuous. EENT: No signs and/or symptoms were reported regarding the EENT system. Neuro: Level of Consciousness is awake, alert, obeys commands, Oriented to person, place, time, situation, Appropriate for age. Cardiovascular: Patient's skin is warm and dry. Respiratory: Airway is patent Respiratory effort is even, unlabored, Respiratory pattern is regular, symmetrical. GI: Reports lower abdominal pain, nausea, vomiting, since this evening. : Reports pain in left flank(s), lower quadrant(s) since this evening. Derm: Skin is intact, is healthy with good turgor, Skin is normal. Musculoskeletal: Circulation, motion, and sensation intact. Range of motion: intact in all extremities. 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 - Infectious Disease History:: Denies. - Social history:: Smoking status: Patient denies any tobacco usage or history of. Screenin:28 [facility] ED Fall Risk Assessment (Adult) History of falling in the last 3 months, zm including since admission No falls in past 3 months (0 pts) Confusion or Disorientation No (0 pts) Intoxicated or Sedated No (0 pts) Impaired Gait No (0 pts) Mobility Assist Device Used No (0 pt) Altered Elimination No (0 pt) Score/Fall Risk Level 0 - 2 = Low Risk Oriented to surroundings, Maintained a safe environment, Educated pt \\T\\ family on fall prevention, incl call for assistance when getting out of bed, Assessed \\T\\ reinforced patient's understanding of fall precautions, Hourly rounding (assess needs \\T\\ fall precautionary measures) done, Used ambulatory aids as needed (educated on \\T\\ assisted with), Used gait belt as appropriate. Abuse screen: Denies threats or abuse. Denies injuries from another. Nutritional screening: No deficits noted. Tuberculosis screening: No symptoms or risk factors identified. Assessment: 20:23 General: Appears in no apparent distress. uncomfortable, Behavior is cooperative, zm crying. Pain: Complains of pain in left low back, left upper quadrant and left lower quadrant Pain currently is 5 out of 10 on a pain scale. Quality of pain is described as sharp, Pain began 1 hour ago. Neuro: No deficits noted. Level of Consciousness is awake, alert, obeys commands, Oriented to person, place, time, situation. Cardiovascular: No deficits noted. Heart tones S1 S2 present Capillary refill < 3 seconds in bilateral fingers toes Patient's skin is warm and dry. Respiratory: No deficits noted. Airway is patent Respiratory effort is even, unlabored, Respiratory pattern is regular, symmetrical, Breath sounds are clear bilaterally. in right upper lobe and left upper lobe. GI: Abdomen is flat, non-distended, Bowel sounds present X 4 quads. Abd is soft X 4 quads Abdomen is tender to palpation in left upper quadrant and left lower quadrant. 21:25 General: Behavior is cooperative, crying, restless. Pain: Pain currently is 8 out of 10 zm on a pain scale. 21:53 Reassessment: Patient appears in no apparent distress at this time. Patient and/or zm family updated on plan of care and expected duration. Pain level reassessed. Patient is alert, oriented x 3, equal unlabored respirations, skin warm/dry/pink. Patient states feeling better. Patient states symptoms have improved. 22:19 Reassessment: Patient appears in no apparent distress at this time. Patient and/or zm family updated on plan of care and expected duration. Pain level reassessed. Patient is alert, oriented x 3, equal unlabored respirations, skin warm/dry/pink. Patient states feeling better. Patient states symptoms have improved. Vital Signs: 19:59 BP 156 / 96; Pulse 106; Resp 19; Temp 97.9; Pulse Ox 98% ; Weight 63.5 kg; Height 5 ft. me1 3 in. ; Pain 8/10; 20:23 BP 153 / 107; Pulse 95; Resp 20; Pain 5/10; zm 21:56 BP 143 / 99; Pulse 90; Resp 18; Pulse Ox 100% on R/A; Pain 3/10; zm 22:19 BP 137 / 92; Pulse 86; Resp 17; Temp 97.9; Pulse Ox 100% ; Pain 4/10; zm 19:59 Body Mass Index 24.80 (63.50 kg, 160.02 cm) me1 19:59 Pain Scale: Adult me1 20:23 Pain Scale: Adult zm 21:56 Pain Scale: Adult zm 22:19 Pain Scale: Adult zm Maria Guadalupe Coma Score: 20:23 Eye Response: spontaneous(4). Motor Response: obeys commands(6). Verbal Response: zm oriented(5). Total: 15. 21:56 Eye Response: spontaneous(4). Motor Response: obeys commands(6). Verbal Response: zm oriented(5). Total: 15. 22:19 Eye Response: spontaneous(4). Motor Response: obeys commands(6). Verbal Response: zm oriented(5). Total: 15. ED Course: 19:49 Patient arrived in ED. mr 19:50 [facility]C [facility]. kb 19:50 Edwar Biggs MD is Attending Physician. kb 19:57 Janina Jacobo, ANA is Primary Nurse. kd3 20:00 Triage completed. me1 20:00 Arm band placed on Patient placed in an exam room. me1 20:15 Inserted saline lock: 20 gauge in right antecubital area, using aseptic technique. zm Blood collected. Flushed with 10 mL NS. 20:15 Initial lab(s) drawn, by pa, sent to lab. Urine collected: clean catch specimen, clear. zm 20:23 CBC with Diff Sent. zm 20:23 UA Rfx Bobo Cult if indicated Sent. zm 20:23 CMP Sent. zm 20:23 Lipase Sent. zm 20:23 Test, Urine Sent. zm 20:28 Patient has correct armband on for positive identification. Bed in low position. Call zm light in reach. Side rails up X 1. Adult w/ patient. Provided Education on: CALL LIGHT USE. Client placed on continuous cardiac and pulse oximetry monitoring. NIBP monitoring applied. Pulse ox on. NIBP on. Door closed. Noise minimized. Lights dimmed. Warm blanket given. Verbal reassurance given. Head of bed lowered. 21:43 CT Stone Protocol In Process Unspecified. EDMS 22:19 Provided Education on: post er care. zm 22:19 No provider procedures requiring assistance completed. IV discontinued, intact, zm bleeding controlled, No redness/swelling at site. Pressure dressing applied. Administered Medications: 20:23 Drug: Ondansetron IVP 4 mg IVP once; over 2 minutes Route: IVP; Site: right antecubital;zm 22:21 Follow up: Response: No adverse reaction zm 20:23 Drug: morphine IVP or IV 4 mg IVP once over 4 mins Route: IVP; Infused Over: 4 mins; zm Site: right antecubital; 22:21 Follow up: Response: No adverse reaction zm 20:23 Drug: NS 0.9% IV 1000 ml IV at 1 bolus Per protocol; to be given as a bolus over 60 zm minutes Route: IV; Rate: 1 bolus; Site: right antecubital; 22:22 Follow up: Response: No adverse reaction; IV Status: Completed infusion 21:01 Drug: Ketorolac IVP 15 mg IVP once Route: IVP; Site: right antecubital; bm8 22:22 Follow up: Response: No adverse reaction zm 21:30 Drug: morphine IVP or IV 4 mg IVP once over 4 mins Route: IVP; Infused Over: 4 mins; bm8 Site: right antecubital; 22:22 Follow up: Response: No adverse reaction zm 22:17 Drug: Flomax PO 0.4 mg PO once Route: PO; zm 22:22 Follow up: Response: No adverse reaction zm Medication: 20:31 VIS not applicable for this client. zm Outcome: 22:17 Discharge ordered by . amanda 22:19 Discharged to home ambulatory, with family, zm 22:19 Condition: stable 22:19 Discharge instructions given to patient, family, Instructed on discharge instructions, follow up and referral plans. no drinking with medication, no driving heavy equipment, medication usage, safety practices, Demonstrated understanding of instructions, follow-up care, medications, 22:23 Prescriptions given X 3, zm 22:23 Patient left the ED. Signatures: Dispatcher [employer] EDMS Anna Maya, CAREER ORIENTATION TEACHER-C CAREER ORIENTATION TEACHER-CkPaula Diaz, Reg Reg mr Janina Jacobo, RN RN kd3 Sivan Painter, RN RN zm Lubna Zaman, RN RN me1 Flynn Fofana, RN RN bm8
--- NOTE | 2025-01-24 22:18 | EDPHYS ---
Physician Documentation [facility] Name: Gilma Rush Age: 44 yrs Sex: Female : 1980 Arrival Date: 01/24/2025 Time: 19:47 Bed 5 Private MD: ED Physician Edwar Biggs HPI: 01/24 21:58 This 44 yrs old Female presents to ER via Ambulatory with complaints of kb Abdominal Pain, Back Pain. 21:58 Patient is a 44-year-old female who presents for left lower quadrant and left flank kb pain that started 1 hour prior to arrival. States she did not have any symptoms prior to this. Denies urinary symptoms. States she did have 1 episode of vomiting just prior to arrival.. 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 - Infectious Disease History:: Denies. - Social history:: Smoking status: Patient denies any tobacco usage or history of. ROS: 21:58 Constitutional: As per HPI kb Exam: 21:58 Constitutional: This is a well developed, well nourished patient who is awake, alert, kb and in no acute distress. Head/Face: Normocephalic, atraumatic. ENT: Moist Mucous membranes Cardiovascular: Regular rate Respiratory: Respirations even and unlabored. No increased work of breathing. Talking in full sentences Skin: Warm, dry with normal turgor. Normal color. MS/ Extremity: Pulses equal, no cyanosis. Neurovascular intact. Full, normal range of motion. Neuro: Awake and alert, GCS 15, oriented to person, place, time, and situation. 21:58 Abdomen/GI: Inspection: abdomen appears normal, Bowel sounds: normal, Palpation: soft, in all quadrants, mild abdominal tenderness, in the left lower quadrant, 21:58 Back: CVA tenderness, that is mild, is noted on the left, Vital Signs: 19:59 BP 156 / 96; Pulse 106; Resp 19; Temp 97.9; Pulse Ox 98% ; Weight 63.5 kg; Height 5 ft. me1 3 in. ; Pain 8/10; 20:23 BP 153 / 107; Pulse 95; Resp 20; Pain 5/10; zm 21:56 BP 143 / 99; Pulse 90; Resp 18; Pulse Ox 100% on R/A; Pain 3/10; zm 22:19 BP 137 / 92; Pulse 86; Resp 17; Temp 97.9; Pulse Ox 100% ; Pain 4/10; zm 19:59 Body Mass Index 24.80 (63.50 kg, 160.02 cm) me1 19:59 Pain Scale: Adult me1 20:23 Pain Scale: Adult zm 21:56 Pain Scale: Adult zm 22:19 Pain Scale: Adult zm Prue Coma Score: 20:23 Eye Response: spontaneous(4). Motor Response: obeys commands(6). Verbal Response: zm oriented(5). Total: 15. 21:56 Eye Response: spontaneous(4). Motor Response: obeys commands(6). Verbal Response: zm oriented(5). Total: 15. 22:19 Eye Response: spontaneous(4). Motor Response: obeys commands(6). Verbal Response: zm oriented(5). Total: 15. MDM: 19:50 Medical Screening Exam initiated kb 22:06 Data reviewed: vital signs, nurses notes. Independent interpretation of the following kb test(s) in the Emergency Department CT Scan: My interpretation is bilateral kidney stones, left hydronephrosis. 22:17 Differential diagnosis: Pyelonephritis, Ureterolithiasis, urinary tract infection. kb Counseling: I had a detailed discussion with the patient and/or guardian regarding the historical points, exam findings, and any diagnostic results supporting the discharge/admit diagnosis, lab results, radiology results, the need for outpatient follow up, a urologist, to return to the emergency department if symptoms worsen or persist or if there are any questions or concerns that arise at home. 01/24 20:02 Order name: CBC with Diff; Complete Time: 20:36 kb 01/24 20:02 Order name: CMP; Complete Time: 20:59 kb 01/24 20:02 Order name: Lipase; Complete Time: 20:59 kb 01/24 20:02 Order name: Test, Urine; Complete Time: 20:36 kb 01/24 20:02 Order name: UA Rfx Bobo Cult if indicated; Complete Time: 20:36 kb 01/24 20:59 Order name: CT Stone Protocol; Complete Time: 22:13 kb 01/24 20:02 Order name: IV Saline Lock; Complete Time: 20:23 kb 01/24 20:02 Order name: Labs collected and sent; Complete Time: 20:23 kb Administered Medications: 20:23 Drug: Ondansetron IVP 4 mg IVP once; over 2 minutes Route: IVP; Site: right antecubital;zm 22:21 Follow up: Response: No adverse reaction zm 20:23 Drug: morphine IVP or IV 4 mg IVP once over 4 mins Route: IVP; Infused Over: 4 mins; zm Site: right antecubital; 22:21 Follow up: Response: No adverse reaction zm 20:23 Drug: NS 0.9% IV 1000 ml IV at 1 bolus Per protocol; to be given as a bolus over 60 zm minutes Route: IV; Rate: 1 bolus; Site: right antecubital; 22:22 Follow up: Response: No adverse reaction; IV Status: Completed infusion zm 21:01 Drug: Ketorolac IVP 15 mg IVP once Route: IVP; Site: right antecubital; bm8 22:22 Follow up: Response: No adverse reaction zm 21:30 Drug: morphine IVP or IV 4 mg IVP once over 4 mins Route: IVP; Infused Over: 4 mins; bm8 Site: right antecubital; 22:22 Follow up: Response: No adverse reaction zm 22:17 Drug: Flomax PO 0.4 mg PO once Route: PO; zm 22:22 Follow up: Response: No adverse reaction zm Disposition: 01/25 02:17 Co-signature as Attending Physician, Edwar Biggs MD I agree with the assessment sp4 and plan of care. I reviewed the patient's care provided by the Advanced Practice Provider and agree with the diagnosis and treatment plan. Disposition Summary: 01/24/25 22:17 Discharge Ordered Notes: Location: Home kb Condition: Stable kb Diagnosis - Calculus of kidney with calculus of ureter kb Followup: kb - With: Emergency Department - When: As needed - Reason: Worsening of condition Followup: kb - With: Private Physician - When: 2 - 3 days - Reason: Recheck today's complaints, Continuance of care, Re-evaluation by your physician Discharge Instructions: - Discharge Summary Sheet kb - Kidney Stones, [id number] kb - Dietary Guidelines to Help Prevent Kidney Stones kb Forms: - Medication Reconciliation Form kb - Antibiotic Education kb - Prescription Opioid Use kb - Patient Portal Instructions kb - Leadership Thank You Letter kb Prescriptions: - Zofran 4 mg Oral tablet - take 1 tablet ORAL route every 6 hours As needed; 12 tablet; Refills: 0, kb Product Selection Permitted - Diclofenac Sodium 75 mg Oral tablet, delayed release (enteric coated) - take 1 tablet ORAL route 2 times per day As needed; 30 tablet; Refills: 0, kb Product Selection Permitted - Tramadol 50 mg Oral Tablet - take 1 tablet ORAL route every 8 hours as needed; 12 tablet; Refills: 0, kb Product Selection Permitted Signatures: Dispatcher [employer] EDAnna Gill FNP-C FNP-Ckb Martinez, Zaina, RN RN zm Edwar Biggs MD MD sp4 Lubna Zaman RN RN me1 Flynn Fofana RN RN bm8 Corrections: (The following items were deleted from the chart) 01/24 20:02 20:02 CBC+H.LAB.BRZ ordered. EDMS EDMS 20:02 20:02 COMPREHENSIVE METABOLIC PANEL+C.LAB.BRZ ordered. EDMS EDMS 20:02 20:02 LIPASE+C.LAB.BRZ ordered. EDMS EDMS 20:02 20:02 Test, Urine+UC.LAB.BRZ ordered. EDMS EDMS 20:02 20:02 UA Rfx Bobo Cult if indicated+U.LAB.BRZ ordered. EDMS EDMS
[2025-01-24 22:49] VITALS: TEMP 97.9
[2025-01-24 22:52] VITALS: O2SAT 100
[2025-01-24 22:54] VITALS: BP 137/92
== END 2025-01-24 22:23 | disposition home or self-care (01) ==
LOC: ER 19:47
DX: N20.2 Calculus of kidney with calculus of ureter (principal); Z87.442 Personal history of urinary calculi
CPT/HCPCS: 96361; 85025; 81001; 36415; 81025; 83690; 80053; 76377; 74176; 96375; 96374; 99284; J2405; J7030